=== PATIENT | female | born 1950 | race Caucasian/White ===

== ENCOUNTER 2024-10-11 10:31 | Outpatient (OUT) | payer MEDICARE, SELFPAY ==
--- NOTE | 2024-10-11 10:35 | ECG_ITS ---
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 Measurements Intervals Sarver Rate: 93 P: 67 ME: 214 QRS: 55 QRSD: 78 T: 26 QT: 329 QTc: 409 Interpretive Statements SINUS RHYTHM WITH FIRST DEGREE AV BLOCK Abnormal ECG Compared to ECG 07/09/2021 08:47:59 First degree AV block now present Incomplete right bundle-branch block no longer present Electronically Signed On 10-11-2024 22:59:04 EDT by LOBO HERNÁNDEZ M.D.
--- NOTE | 2024-10-11 10:51 | CT_ITS ---
The [address] [address] Patient Name: OKSANA CUELLO MRN: [id number] date: 1950 Sex: F Assigned Patient Location: CT Current Patient Location: CT Accession/Order Number: [id number] Exam Date: 10/11/2024 13:53 Report Date: 10/11/2024 14:01 At the request of: ANALI LEYVA MD Procedure: CT ankle LT wo con CT ankle LT wo con 10/11/2024 11:07 AM SIGNS AND SYMPTOMS: Preop, tib-fib fracture TECHNIQUE: Multidetector CT axial slices of the left ankle without IV contrast. Multiplanar reformats were performed and viewed on a separate workstation and reviewed to further define anatomy and possible pathology. CT was performed with one or more of the following dose reduction techniques: Automated exposure control, adjustment of the mA and/or kV according to patient size, or use of iterative reconstruction technique. COMPARISON: Radiographs from 10/07/2024 FINDINGS: There is a mildly displaced obliquely oriented fracture of the distal shaft of the fibula similar to the prior study. The distal fragment is offset laterally by approximately 6 mm. There is widening of the junction of the talus and the medial malleolus with a gap measuring 9 mm. There are tiny bony fragments separate from the medial malleolus and medial aspect of the talus suggesting an avulsive injury to the deltoid ligament. There is a comminuted mildly displaced fracture of the dorsal aspect of the distal tibia which is slightly impacted by approximately 5 mm. There is also a corresponding slightly impacted fracture along the dorsal aspect talus. The subtalar joints are preserved. There is accompanying diffuse soft tissue swelling. CT/CT ankle LT wo con IMPRESSION: Distal tibia and fibular fractures are noted as above. There is a slightly impacted fracture of the dorsal aspect of the talus. Findings suggest a deltoid ligament injury with tiny avulsed fracture fragment separate from the medial malleolus and medial talus. There is also widening of the distance between the medial malleolus and talus. Impression dictated by: Carroll [place] M.D. 10/11/2024 2:01 PM Dictation Location: [employer] Electronically authenticated by: [id number] Y Date: 10/11/2024 14:01
--- NOTE | 2024-10-11 10:53 | XR_ITS ---
The [place] [id number] Patient Name: OKSANA CUELLO MRN: [id number] date: 1950 Sex: F Assigned Patient Location: CT Current Patient Location: CT Accession/Order Number: [id number] Exam Date: 10/11/2024 13:51 Report Date: 10/11/2024 13:53 At the request of: ANALI LEYVA MD Procedure: XR chest 2V XR chest 2V 10/11/2024 11:11 AM SIGNS AND SYMPTOMS: ^Preoperative Respiratory Clearance PROTOCOL: Frontal and lateral radiographs of the chest COMPARISON: None FINDINGS: The trachea is midline. The heart and mediastinal structures are within normal limits. The lung parenchyma is clear. The bony thorax is intact. Degenerative changes are noted in the lumbar spine. XR/XR chest 2V IMPRESSION: No acute cardiopulmonary pathology. Impression dictated by: Carroll Me[place] M.D. 10/11/2024 1:53 PM Dictation Location: [place] [address] Electronically authenticated by: [id number] Y Date: 10/11/2024 13:53
[2024-10-11 11:02] LABS: Basophils Percent Auto 0.5 % (0.2-2.0); Eosinophils Absolute Auto 0.1 10^3/uL (0.0-0.7); Eosinophils Percent Auto 2.2 % (0.9-7.0); Hematocrit 38.7 % (36.0-48.0); Hemoglobin 12.8 g/dL (12.0-16.0); Immature Granulocytes Abs Auto 0.01 10^3/uL (0.00-0.03); Immature Granulocytes Pct Auto 0.2 % (0.0-0.5); Lymphocytes Absolute Auto 1.3 10^3/uL (1.2-3.8); Lymphocytes Percent Auto 21.9 % (20.5-60.0); Mean Corpuscular HGB Conc 33.1 g/dL (29.9-35.2); Mean Corpuscular Hemoglobin 30.3 pg (26.7-34.0); Mean Corpuscular Volume 91.7 fL (81.0-99.0); Mean Platelet Volume 9.7 fL (9.5-13.5); Monocytes Absolute Auto 0.6 10^3/uL (0.3-0.8); Monocytes Percent Auto 9.8 % (1.7-12.0); Neutrophils Absolute Auto 3.9 10^3/uL (1.4-6.5); Neutrophils Percent Auto 65.4 % (43.0-75.0); Platelet Count 249 10^3/uL (150-450); Red Blood Count 4.22 10^6/uL (4.20-5.40); Red Cell Distribution Width 12.7 % (11.0-15.0)
[2024-10-11 11:13] LABS: Anion Gap 11.4; BUN Creatinine Ratio 22.1; Calcium 9.3 mg/dL (8.5-10.1); Carbon Dioxide 29.6 mmol/L (21.0-32.0); Chloride 106 mmol/L (98-107); Estimated GFR (African America >60 (>=60 mL/min/1.73m^2); Estimated GFR (Non-African Ame 52 (>=60 mL/min/1.73m^2); Glucose 98 mg/dL (74-106); Sodium 143 mmol/L (136-145)
== END 2024-10-11 10:32 | disposition home or self-care (01) ==
LOC: CT 10:33
PROVIDERS: PCP Nurse Practitioner; Visit Provider Student in an Organized Health Care Education/Training Program
DX: Z01.810 Encounter for preprocedural cardiovascular examination (principal); Z01.812 Encounter for preprocedural laboratory examination; Z01.811 Encounter for preprocedural respiratory examination
CPT/HCPCS: 36415; 71046; 73700; 80048; 85025; 93005

== ENCOUNTER 2024-11-13 16:37 | Outpatient (OUT) | payer MEDICARE, SELFPAY ==
--- OUTSIDE RECORDS SUMMARY | 2024-11-13 05:02 | XMS_ITS ---
Author Organization [facility] Address [address] [place] [address] Care Team Providers Care Searchlight Operator Name Role Phone WHITNEY HERNANDEZ Primary Care Provider Unavail able Tito Florez Unavailable [phone] Golden Watkins Unavailable [phone] Encounters Encounter Location Date Provider Diagnosis [facility] [address] [place] [address] 11/13/2024 Golden Watkins Plan Of Treatment Next Appt Details Provider Name:Golden sam, 11/27/2024 01:30:00 PM, [address], [place], [address], Progress Notes * DEBORA CUELLOB:[birth year] (74 yo F)Acc No.[id number]:11/13/2024 Patient: OKSANA REYNA :1950 A ge:74 Y S ex:Female Address:[facility] [address], [place], [address] * true * Date: Generated for Printi ng/Faxing/eTransmitting on: 0 11/13/2024 04:40 PM EDT
--- OUTSIDE RECORDS SUMMARY | 2024-11-13 09:30 | XMS_ITS ---
Author Organization [facility] Address [address] [place] [address] Care Team Providers Care Household Worker Name Role Phone WHITNEY HERNANDEZ Primary Care Provider Unavail able Tito Florez Unavailable [phone] Ganga Garcia Unavailable [phone] REASON FOR VISIT S/P ORIF LEFT ANKLE AT [facility] - increased pain, can't sleep(Dr. Watkins Patient), Status post ORIF left trimalleolar ankle fracture 10/12/2024 Medications Medication SIG (Take, Route, Frequency, Duration) Notes Start Date End Date Status oxyCODONE 5 mg 1 tab(s) orally ever y 12 hours PRN pain for 10 days 11/13/2024 11/23/2024 Active Lyrica 75 mg 1 cap orally 2 times a day as needed for pain for 14 days 11/13/2024 Active meloxicam Active simvastatin 40 mg for 90 Days Active acyclovir 400 mg for 90 Days A ctive hydroCHLOROthiazide 12.5 mg TAKE 1 CAPSU LE DAILY for 90 Days Active ketorolac 10 mg 1 tab(s) orally 4 times a day as needed for breakthrough pain for 5 days 10/10/2024 Active atorvastatin Active Encounters Encounter Location Date Provider Diagnosis [facility] [address] [place] [address] 11/13/2024 Ganga Garcia Closed disp trimalle olar fx of left lower leg with routine healing S82.852D Assessments Encounter Date Diagnosis (ICD Code) Assessment Notes Treatment Notes Treatment Clinical Notes Section Notes 11/13/2024 Closed disp trimalleolar fx of left lower leg with routine healing (ICD-10 - S82.852D) Status post ORIF left trimalleolar ankle fracture 10/12/2024 Left calf pain 11/13/2024 Other Discussed treatment options with patient. Patient does have diffuse pain and swelling in her calf and lower leg. At this time we will obtain a venous duplex ultrasound of her lower leg to rule out DVT as a cause of her increased pain and swelling. She was given a prescription for oxycodone and Lyrica to help with her pain. She was encouraged to continue using anti-inflammato ledy as well as ice. Continue nonweightbearin g. All questions and concerns were addressed. Patient was in agreement the treatment plan. Will plan to see the patient back in [address] Gale for repeat clinical and radiographic evaluation. Status post ORIF left trimalleolar ankle fracture 10/12/2024 Left calf pain Plan Of Treatment Medication Medication Name Sig Start Date Stop Date Notes oxyCODONE 5 mg 1 tab(s) orally ever y 12 hours PRN pain for 10 days 11/13/2024 11/23/2024 Lyrica 75 mg 1 cap orally 2 times a day as needed for pain for 14 days 11/13/2024 Treatment Notes Assessment Notes Other Discussed treatment options with patient. Patient does have diffuse pain and swelling in her calf and lower leg. At this time we will obtain a venous duplex ultrasound of her lower leg to rule out DVT as a cause of her increased pain and swelling. She was given a prescription for oxycodone and Lyrica to help with her pain. She was encouraged to continue using anti-inflammatories as well as ice. Continue nonweightbearing. All questions and concerns were addressed. Patient was in agreement the treatment plan. Will plan to see the patient back in [address] Gale for repeat clinical and radiographic evaluation. Pending Test Test Name Order Date Foot, left 3v - [id number] 11/13/2024 RSS: ANKLE 3V LEFT AP, MORTISE, LAT-7361 0 11/13/2024 RSS- Venous doppler LEFT low er extremity : Dx: M79.662 left leg pain ; Hold and call if positive only 11/13/2024 Next Appt Details Follow Up: [address] Watkins, Reason: Provider Name:Golden sam, 11/27/2024 01:30:00 PM, [address], [place], [address], Progress Notes * DEBORA CUELLOB:[birth year] (74 yo F)Acc No.[id number]:11/13/2024 Progress Notes Patient: OKSANA REYNA Provider: Andres Garcia MD :1950 A ge:74 Y S ex:Female Date:11/13/2024 Address:[facility] [address] Pcp:WHITNEY HERNANDEZ Subjective: * Chief Complaints: * 1 . S/P ORIF LEFT ANKLE AT [facility] - increased pain, can't sleep(Dr. Watkins Patient). 2. Status post ORIF left trimalleolar ankle fracture 10/12/2024 . * HPI: H PI: Patient is a 74-year-old female who presents for follow-up evaluation 4 weeks status post ORIF left ankle fracture. Patient states of the last 4 to 5 days she has had increasing pain pain is sharp and severe in nature. Pain is worse and swelling in her left ankle. With motion. She notes significant stiffness and limitations of her motion secondary to pain and swelling. She denies any redness or drainage from her incision. Denies fevers or chills. She notes diffuse swelling in her lower leg and ankle. She does note some diffuse altered sensation. She has been using a walker for ambulation. She has limited ability to place her boot on her foot secondary to the pain and swelling. She continues to take Tylenol and Motrin. * ROS: C onstitutional: Denies Yo hyatt. * Medical History: * Medications: T aking ketorolac 10 mg tablet 1 tab(s) orally 4 times a day as needed for breakthrough pain , Taking atorvastatin , Taking meloxicam , Taking simvastatin 40 mg tablet , Taking acyclovir 400 mg tablet , Taking hydroCHLOROthiazide 12.5 mg capsule TAKE 1 CAPSULE DAILY Objective: * Vitals: * Examination: G eneral examination: G eneral exam: Patient is a well-appearing female resting comfortably no acute distress. Patient is awake alert and orient x 3. No mitten affect. X -ray Imaging Studies: 3 views left ankle and 3 views left foot obtained and reviewed. Radiographs demonstrate well aligned well-fixed left trimalleolar ankle fracture. Ankle mortise and syndesmosis well aligned. No evidence of fracture in her foot. L eft Lower Extremity: I ncision clean dry and intact. No erythema or drainage. Diffuse edema left foot and ankle. Diffuse tenderness to palpation left ankle and foot. Limited ankle range of motion. Motor intact TA, GSC, EHL, FHL. Sensation intact to light touch SPN, DPN, sural, saphenous, tibial nerve distribution. 2+ DP pulse. Toes are well- perfused. No calf pain. Negative Homans. Assessment: * Assessment: 1. C losed disp trimalleolar fx of left lower leg with routine healing - S82.852D (Primary)? Status post ORIF left trimal leolar ankle fracture 10/12/2024 Left calf pain. Plan: * Treatment: 2. O thers I maging: Foot, left 3v - [id number] I maging: RSS: ANKLE 3V LEFT AP, MORTISE, [id number] Notes: Discussed treatment options with patient. Patient does have diffuse pain and swelling in her calf and lower leg. At this time we will obtain a venous duplex ultrasound of her lower leg to rule out DVT as a cause of her increased pain and swelling. She was given a prescription for oxycodone and Lyrica to help with her pain. She was encouraged to continue using anti-inflammatories as well as ice. Continue nonweightbearing. All questions and concerns were addressed. Patient was in agreement the treatment plan. Will plan to see the patient back in [address] Gale for repeat clinical and radiographic evaluation. * Procedure Codes: 7 3610 X-ray Ankle, 3 view, 96731 X-ray Foot, 3 view * Follow Up: [address] Watkins Forms: * Images: * Electronic signature of Ganga Garcia MD on 11/13/2024 at 04:40 PM EDT Sign off status: Pending * Provider: Andres Garcia MD Date: 11/13/2024 Generated for Susan escobar/Madhu/Lloyditting on: 0 11/13/2024 04:40 PM EDT History and Physical Notes * HPI (History of Present Illness) Category Sub-Category Detail Notes Category Not es HPI Patient is a 74 -year-old female who presents for follow-up evaluation 4 weeks status post ORIF left ankle fracture. Patient states of the last 4 to 5 days she has had increasing pain pain is sharp and severe in nature. Pain is worse and swelling in her left ankle. With motion. She notes significant stiffness and limitations of her motion secondary to pain and swelling. She denies any redness or drainage from her incision. Denies fevers or chills. She notes diffuse swelling in her lower leg and ankle. She does note some diffuse altered sensation. She has been using a walker for ambulation. She has limited ability to place her boot on her foot secondary to the pain and swelling. She continues to take Tylenol and Motrin. Examination Category Sub-Category Detail Notes Category Not es General examination General exam: Patient is a well-appearing female resting comfortably no acute distress. Patient is awake alert and orient x 3. No mitten affect. X-ray Imaging Studies 3 view s left ankle and 3 views left foot obtained and reviewed. Radiographs demonstrate well aligned well-fixed left trimalleolar ankle fracture. Ankle mortise and syndesmosis well aligned. No evidence of fracture in her foot. Left Lower Extremity Incisio n clean dry and intact. No erythema or drainage. Diffuse edema left foot and ankle. Diffuse tenderness to palpation left ankle and foot. Limited ankle range of motion. Motor intact TA, GSC, EHL, FHL. Sensation intact to light touch SPN, DPN, sural, saphenous, tibial nerve distribution. 2+ DP pulse. Toes are well-perfused. No calf pain. Negative Homans.
--- OUTSIDE RECORDS SUMMARY | 2024-11-13 16:40 | XMS_ITS | Encounter Summary ---
[facility] Address [id number] [address] [place] [address] Care Team Providers Care Telecom Network Manager Name Role Phone BeltranKyra akerseayd Gifford APRN-JAW SKINNER Primary Care Provid er Encounter Details Date Type Department Care Team (Late st Contact Info) Description 07/31/2022 Orders Only [facility] - [facility] Medicine [address] [place] [address] Kana Ozuna, [address] [place] [address] Colon cancer screening (Primary Dx) Social History Tobacco Use Types Packs/Day Years Used Date Smoking Tobacco: Never Smokeless Tobacco: Never Alcohol Use Standard Drinks/Week Comments No 0 (1 standard drink = 0.6 oz pur e alcohol) PHQ-2 Answer Date Recorded Total Score 0 07/30/2022 Childcare Answer Date Recorded Childcare Unknown 11/09/2018 Employment Answer Date Recorded Employment Unknown 11/09/2018 Hunger Screening Answer Date Recorded Within the past 12 months we worried whether our food would run out before we got money to buy more. Never True 07/30/2022 Within the past 12 months th e food we bought just didn't last and we didn't have money to get more. Never True 07/30/2022 Purpose - Life Answer Date Recorded Purpose and direction in life Unknown Comments No Sex and Gender Information Value Date Recorded Sex Assigned at Not on file Legal Sex Female 11:48 AM EDT Gender Identity Not on file Sexual Orientation Not on file Occupation Industry Job Start Date Job End Date [employer] Not on file Not on file Not on file COVID-19 Exposure Response Date Recorded In the last month, have you been in contact with someone who was confirmed or suspected to have Coronavirus / COVID-19? No / Unsure 07/30/2022 9:41 AM EST documented as of this encounter Plan of Treatment Upcoming Encounters Date Type Department Care Team (Late st Contact Info) Description 08/06/2025 10:20 AM EDT Office Visit [facility] [address] [place] [address] Bisi Beltran, FOOD PREPARATION KITCHEN AIDE-JAW SKINNER [address] [place] [address] documented as of this encounter Visit Diagnoses Diagnosis Colon cancer screening- Primary Special screening for malignant neoplasms, colon documented in this encounter Additional Health Concerns Assessment Noted Time PHQ-9 Depression Total Score: 0 07/31/19 23 9:52 AM EST A Body Mass Index follow-up plan has been documented for the patient 07/30/2022 6:39 PM EST documented as of this encounter Care Teams Telecom Network Manager Relationship Specialty Start Date End Date Bisi Beltran, TERESA-JAW SKINNER [address] [place] [address] PCP - General Family Medicine 06/06/19 documented as of this encounter
--- OUTSIDE RECORDS SUMMARY | 2024-11-13 16:40 | XMS_ITS | Encounter Summary ---
Author Organization [facility] Address [id number] [address] [place] [address] Care Team Providers Care Family Dinner Service Specialist Name Role Phone Bisi Beltran Ирина COLEMANN-TUBE MOUNTER Primary Care Provid er Encounter Details Date Type Department Care Team (Late Contact Info) Description 10/27/2024 Orders Only [facility] - [facility] [address] [facility] [place] [address] Ref Prov, [place] [address] Social History Tobacco Use Types Packs/Day Years Used Date Smoking Tobacco: Never Smokeless Tobacco: Never Alcohol Use Standard Drinks/Week Comments No 0 (1 standard drink = 0.6 oz pur e alcohol) PHQ-2 Answer Date Recorded Total Score 0 08/02/2024 Childcare Answer Date Recorded Childcare Unknown 11/09/2018 Employment Answer Date Recorded Employment Unknown 11/09/2018 Hunger Screening Answer Date Recorded Within the past 12 months we worried whether our food would run out before we got money to buy more. Never True 08/02/2024 Within the past 12 months th e food we bought just didn't last and we didn't have money to get more. Never True 08/02/2024 Purpose - Life Answer Date Recorded Purpose and direction in life Unknown Comments No Sex and Gender Information Value Date Recorded Sex Assigned at Not on file Legal Sex Female 11:48 AM EDT Gender Identity Not on file Sexual Orientation Not on file Occupation Industry Job Start Date Job End Date [employer] Not on file Not on file Not on file documented as of this encounter Plan of Treatment Upcoming Encounters Date Type Department Care Team (Late st Contact Info) Description 08/06/2025 10:20 AM EDT Office Visit [facility] [address] [place] [address] Bisi Beltran APRN-CNP [address] [place] [address] documented as of this encounter Procedures Procedure Name Priority Date/Time Associated Diagnosis Comments CT ANKLE LT WO CONT Routine 10/11/2024 9:44 AM EDT documented in this encounter Results * CT ankle left without contrast (10/11/2024 9:44 AM EDT) Anatomical Region Laterality Modality MSK, Lower Extremities, Ankle, MSK Covera Left Computed Tomography us Not In System Ref Prov IMG CT ORDERABLES Final R esult documented in this encounter Visit Diagnoses Not on filedocumented in this encounter Additional Health Concerns Assessment Noted Time PHQ-9 Depression Total Score: 0 08/03/19 25 9:00 AM EST A Body Mass Index follow-up plan has been documented for the patient 08/02/2024 10:38 AM EST documented as of this encounter Care Teams Family Dinner Service Specialist Relationship Specialty Start Date End Date Bisi Beltran APRN-CNP [address] [place] [address] PCP - General Family Medicine 06/06/19 documented as of this encounter
--- OUTSIDE RECORDS SUMMARY | 2024-11-13 16:40 | XMS_ITS | Encounter Summary ---
Author Organization [email or web address] s [employer] Address [id number] [address] [place] [address] Care Team Providers Care Rent Control Office Manager Name Role Phone Bisi Beltran APRN-CRATER AND PACKER Primary Care Provid er Encounter Details Date Type Department Care Team (Late Contact Info) Description 03/07/2021 Orders Only [facility] [address] [place] [place] [address] External, Scanning Provider Social History Tobacco Use Types Packs/Day Years Used Date Smoking Tobacco: Never Smokeless Tobacco: Never Alcohol Use Standard Drinks/Week Comments No 0 (1 standard drink = 0.6 oz pur e alcohol) PHQ-2 Answer Date Recorded Total Score 0 07/31/2020 Childcare Answer Date Recorded Childcare Unknown 11/09/2018 Employment Answer Date Recorded Employment Unknown 11/09/2018 Purpose - Life Answer Date Recorded Purpose [...] Medicine - Family Medicine [address] [place] [address] Bisi Beltran APRN-CRATER AND PACKER [address] [place] [address] documented as of this encounter Procedures Procedure Name Priority Date/Time Associated Diagnosis Comments MULTIPLE LABS Routine 03/07/2021 documented in this encounter Results * Multiple labs (03/07/2021) us Scanning Provider External [place] [facility] Final Result MANUALLY TRANSCRIBED RESULTS documented in this encounter Visit Diagnoses Not on filedocumented in this encounter Additional Health Concerns Assessment Noted Time PHQ-9 Depression Total Score: 0 08/01/19 21 1:00 PM EST A Body Mass Index follow-up plan has been documented for the patient 01/03/2020 9:55 AM EDT documented as of this encounter Care Teams Rent Control Office Manager Relationship Specialty Start Date End Date Bisi Bletran APRN-CRATER AND PACKER [address], [place] [address] PCP - General Family Medicine 06/06/19 documented as of this encounter
--- OUTSIDE RECORDS SUMMARY | 2024-11-13 16:40 | XMS_ITS | Encounter Summary ---
Author Organization [facility] Address [id number] [address] [place] [address] Care Team Providers Care Commissioner Of Conciliation Name Role Phone Bisi Beltran Ирина COLEMANN-ON LINE CSR Primary Care Provid er Encounter Details Date Type Department Care Team (Late Contact Info) Description 08/31/2022 Orders Only [facility] - Family Medicine [address] [facility] [address] External, Scanning Provider Social History Tobacco Use [...] Medicine - Family Medicine [address] [place] [address] Bisi Beltran APRN-BROOKE [address] [place] [address] documented as of this encounter Procedures Procedure Name Priority Date/Time Associated Diagnosis Comments SURGICAL PATHOLOGY Routine 08/26/2022 documented in this encounter Results * Surgical Pathology (08/26/2022) us Scanning Provider External PATHOLOGY/CYTOLOGY OR DERABLES Final Result MANUALLY TRANSCRIBED RESULTS documented in this encounter Visit Diagnoses Not on filedocumented in this encounter Additional Health Concerns Assessment Noted Time PHQ-9 Depression Total Score: 0 07/31/19 23 9:52 AM EST A Body Mass Index follow-up plan has been documented for the patient 07/30/2022 6:39 PM EST documented as of this encounter Care Teams Commissioner Of Conciliation Relationship Specialty Start Date End Date Bisi Beltran, TERESA-ON LINE CSR [address] [place] [address] PCP - General Family Medicine 06/06/19 documented as of this encounter
--- OUTSIDE RECORDS SUMMARY | 2024-11-13 16:40 | XMS_ITS | Encounter Summary ---
Author Organization [facility] Address [id number] [address] [place] [address] Care Team Providers Care Starbucks Clerk Name Role Phone Bisi Beltran Ирина COLEMANN-AUTOMOBILE MECHANIC RADIATOR Primary Care Provid er Encounter Details Date Type Department Care Team (Late Contact Info) Description 09/09/2022 Orders Only [facility] Internal [facility] - Family Medicine [address] [facility] [place] [phone] External, Scanning Provider Social History Tobacco Use [...] Medicine - Family Medicine [address] [place] [address] Bisi Beltran APRN-CNP [address] [address] documented as of this encounter Procedures Procedure Name Priority Date/Time Associated Diagnosis Comments CYSTOSCOPY Routine 09/09/2022 documented in this encounter Results * Cystoscopy (09/09/2022) us Scanning Provider External PROCEDURE ORDERABL ES Final Result MANUALLY TRANSCRIBED RESULTS documented in this encounter Visit Diagnoses Not on filedocumented in this encounter Additional Health Concerns Assessment Noted Time PHQ-9 Depression Total Score: 0 07/31/19 23 9:52 AM EST A Body Mass Index follow-up plan has been documented for the patient 07/30/2022 6:39 PM EST documented as of this encounter Care Teams Starbucks Clerk Relationship Specialty Start Date End Date Bisi Beltran, TERESA-AUTOMOBILE MECHANIC RADIATOR [address] [place] [address] PCP - General Family Medicine 06/06/19 documented as of this encounter
--- OUTSIDE RECORDS SUMMARY | 2024-11-13 16:40 | XMS_ITS | Encounter Summary ---
Author Organization [facility] [place] [facility] Address [facility] [id number] [address] [place] [address] Care Team Providers Care Watch Repair Person Name Role Phone Bisi Beltran Ирина COLEMANN-PHYSICIAN VICE PRESIDENT Primary Care Provid er Encounter Details Date Type Department Care Team (Late st Contact Info) Description 09/03/2022 Telephone [facility] Internal Medicine - Family Medicine [address] [facility] [place] [phone] Kaylynn Márquez CMA Social History Tobacco Use Types Packs/Day Years [...] on file documented as of this encounter Miscellaneous Notes * Telephone Encounter - Kaylynn Márquez CMA - 09/03/2022 10:09 AM EDT This patient called and cancelled her Colonoscopy because she had to have surgery last week and is having complications. She said she would call us in a couple of weeks to reschedule documented in this encounter Plan of Treatment Upcoming Encounters Date Type Department Care Team (Late st Contact Info) Description 08/06/2025 10:20 AM EDT Office Visit [facility] - Family Medicine [address] [place] [address] Bisi Beltran APRN-BROOKE [address] [place] [address] documented as of this encounter Visit Diagnoses Not on filedocumented in this encounter Additional Health Concerns Assessment Noted Time PHQ-9 Depression Total Score: 0 07/31/19 23 9:52 AM EST A Body Mass Index follow-up plan has been documented for the patient 07/30/2022 6:39 PM EST documented as of this encounter Care Teams Watch Repair Person Relationship Specialty Start Date End Date Bisi Beltran APRN-BROOKE [address] [place] [address] PCP - General Family Medicine 06/06/19 documented as of this encounter
--- OUTSIDE RECORDS SUMMARY | 2024-11-13 16:40 | XMS_ITS | Encounter Summary ---
Author Organization [facility] [employer] [facility] Address [id number] [address] [place] [address] Care Team Providers Care Motor Equipment Lieutenant Name Role Phone Bisi Beltran Ирина COLEMANN-PEDIATRIC GENETIC COUNSELOR Primary Care Provid er Encounter Details Date Type Department Care Team (Late st Contact Info) Description 08/25/2022 Orders Only [facility] Internal Medicine - Family Medicine [address] [facility] [place] [phone] External, Scanning Provider Social History Tobacco Use [...] - Family Medicine [address] [place] [phone] Bisi Beltran APRN-BROOKE [address] [place] [address] documented as of this encounter Procedures Procedure Name Priority Date/Time Associated Diagnosis Comments MULTIPLE LABS Routine 08/25/2022 documented in this encounter Results * Multiple labs (08/25/2022) us Scanning Provider External MA IMAGING Final Result MANUALLY TRANSCRIBED RESULTS documented in this encounter Visit Diagnoses Not on filedocumented in this encounter Additional Health Concerns Assessment Noted Time PHQ-9 Depression Total Score: 0 07/31/19 23 9:52 AM EST A Body Mass Index follow-up plan has been documented for the patient 07/30/2022 6:39 PM EST documented as of this encounter Care Teams Motor Equipment Lieutenant Relationship Specialty Start Date End Date Bisi Beltran APRN-CNP [address] [place] [phone] PCP - General Family Medicine 06/06/19 documented as of this encounter
--- OUTSIDE RECORDS SUMMARY | 2024-11-13 16:40 | XMS_ITS | Encounter Summary ---
Author Organization [facility] Address [id number] [address] [place] [address] Care Team Providers Care Finance Insurance Manager Name Role Phone Bisi Beltran Ирина COLEMANN-EDITOR GREETING CARD Primary Care Provid er Encounter Details Date Type Department Care Team (Late st Contact Info) Description 06/03/2020 Telephone [facility] [address] [place] [address] Janelle Salazar MA Social History Tobacco Use Types Packs/Day Years Used Date Smoking Tobacco: Never Smokeless Tobacco: Never Alcohol Use Standard Drinks/Week Comments No 0 (1 standard drink = 0.6 oz pur e alcohol) PHQ-2 Answer Date Recorded PHQ-2 Score 0 08/18/2018 Childcare Answer Date Recorded Childcare Unknown 11/09/2018 Employment Answer Date Recorded Employment Unknown 11/09/2018 Comments No Sex and Gender Information Value Date Recorded Sex Assigned at Not on file Legal Sex Female 11:48 AM EDT Gender Identity Not on file Sexual Orientation Not on file Occupation Industry Job Start Date Job End Date [employer] Not on file Not on file Not on file COVID-19 Exposure Response Date Recorded In the last month, have you been in contact with someone who was confirmed or suspected to have Coronavirus / COVID-19? No / Unsure 06/01/2020 8:52 AM EST documented as of this encounter Miscellaneous Notes * Telephone Encounter - Janelle Salazar MA - 06/03/2020 9:57 AM EST Spoke to pt, she said with [facility]/ medicare they have to have wellness g code on it, alongwith dx code. Will have to pay if not coded with wellness, they cannot afford to pay Her and guerrero. Janelle Salazar MA 06/03/20 0959 * Telephone Encounter - Janelle Salazar MA - 06/03/2020 9:57 AM EST Please update dx on orders to add wellness code for insurance. Thank you Janelle Salazar MA 06/07/20 0839 * Telephone Encounter - Janelle Salazar MA - 06/03/2020 9:57 AM EST PRINTED AND HAND WROTE DX Z00.00, DUE TO PT GOING TO GET LABS DONE 1ST WEEK OF JUL, AND STILL NOT UPDATED BY PAUL * Telephone Encounter - NIECY Bell - 06/03/2020 9:57 AM EST Is this done? * Telephone Encounter - Janelle Salazar MA - 06/03/2020 9:57 AM EST I did this by handwritten dx add on, but you never changed order in system. But I did fax to registration, so hopefully she can use the handwritten and get done. If not, still awaiting your new orderwith correct dx. documented in this encounter Plan of Treatment Upcoming Encounters Date Type Department Care Team (Late st Contact Info) Description 08/06/2025 10:20 AM EDT Office Visit [facility] - Family Medicine [address] [place] [address] Bisi Beltran APRN-EDITOR GREETING CARD [address] [place] [address] documented as of this encounter Visit Diagnoses Not on filedocumented in this encounter Additional Health Concerns Assessment Noted Time PHQ-9 Depression Total Score: 0 06/28/19 20 10:58 AM EST A Body Mass Index follow-up plan has been documented for the patient 01/03/2020 9:55 AM EDT documented as of this encounter Care Teams Finance Insurance Manager Relationship Specialty Start Date End Date Bisi Beltran, FLOORLEADER-EDITOR GREETING CARD [address] [place] [phone] PCP - General Family Medicine 06/06/19 documented as of this encounter
--- OUTSIDE RECORDS SUMMARY | 2024-11-13 16:40 | XMS_ITS | Encounter Summary ---
Author Organization [facility] Address [id number] [address] [place] [address] Care Team Providers Care Audit Lead Name Role Phone Bisi Beltran Ирина COLEMANN-EMBEDDED SOFTWARE ARCHITECT Primary Care Provid er Encounter Details Date Type Department Care Team (Late st Contact Info) Description 07/30/2022 Telephone [facility] - Family Medicine [address] [place] [phone] Kaylynn Márquez CMA Social History Tobacco Use [...] Telephone Encounter - Kaylynn Márquez CMA - 07/30/2022 11:39 AM EST This patient is scheduled for her Screening Colonoscopy on September 16 at 9:00am. Could you please call in the SuTab and try that before the SuPrep? Please send it to [facility] [place] documented in this encounter Plan of Treatment Upcoming Encounters Date Type Department Care Team (Late st Contact Info) Description 08/06/2025 10:20 AM EDT Office Visit [facility] - Family Medicine [address] [place] [address] Bisi Beltran, DIVISION SUPERVISOR-EMBEDDED SOFTWARE ARCHITECT [address] [place] [address] documented as of this encounter Visit Diagnoses Not on filedocumented in this encounter Additional Health Concerns Assessment Noted Time PHQ-9 Depression Total Score: 0 07/31/19 23 9:52 AM EST A Body Mass Index follow-up plan has been documented for the patient 07/30/2022 6:39 PM EST documented as of this encounter Care Teams Audit Lead Relationship Specialty Start Date End Date Bisi Beltran, DIVISION SUPERVISOR-EMBEDDED SOFTWARE ARCHITECT [address] [place] [address] PCP - General Family Medicine 06/06/19 documented as of this encounter
--- OUTSIDE RECORDS SUMMARY | 2024-11-13 16:41 | XMS_ITS | Encounter Summary ---
Author Organization [facility] Address [facility] [id number] [address] [place] [address] Care Team Providers Care Theater Company Producer Name Role Phone Bisi Beltran Ирина COLEMANN-HEAD TURNING MACHINE OPERATOR Primary Care Provid er Encounter Details Date Type Department Care Team (Late st Contact Info) Description 05/18/2022 Telephone [facility] - Family Medicine [address] [place] [phone] Janelle Salazar MA Social History Tobacco Use Types Packs/Day Years Used Date Smoking Tobacco: Never Smokeless Tobacco: Never Alcohol Use Standard Drinks/Week Comments No 0 (1 standard drink = 0.6 oz pur e alcohol) PHQ-2 Answer Date Recorded Total Score 0 03/16/2022 Childcare Answer Date Recorded Childcare Unknown 11/09/2018 [...] have Coronavirus / COVID-19? No / Unsure 05/18/2022 12:59 PM EST documented as of this encounter Miscellaneous Notes * Telephone Encounter - Janelle Salazar MA - 05/18/2022 9:18 AM EST Pt got zpak and steroid on 05/08 from [facility], she said she is not feeling any better, wanted to know if she can get refill. Crazy work schedule this week . Wants something called in for her-told her will call and let her know, may have to at least do video visit. * Telephone Encounter - NIECY Bell - 05/18/2022 9:18 AM EST Per our discussion, she was prescribed medication 10 days ago. If she is no better, will need an appointment for reevaluation documented in this encounter Plan of Treatment Upcoming Encounters Date Type Department Care Team (Late st Contact Info) Description 08/06/2025 10:20 AM EDT Office Visit [facility] - Family Medicine [address] [place] [address] Bisi Beltran APRN-CNP [address] [place] [address] documented as of this encounter Visit Diagnoses Not on filedocumented in this encounter Additional Health Concerns Assessment Noted Time PHQ-9 Depression Total Score: 0 03/16/20 22 10:43 AM EDT A Body Mass Index follow-up plan has been documented for the patient 01/21/2022 2:26 PM EDT documented as of this encounter Care Teams Theater Company Producer Relationship Specialty Start Date End Date Bisi Beltran APRN-CNP [address] [facility] [place] [address] PCP - General Family Medicine 06/06/19 documented as of this encounter
--- OUTSIDE RECORDS SUMMARY | 2024-11-13 16:41 | XMS_ITS | Encounter Summary ---
Author Organization [facility] Sys tem Address [facility] [id number] [address] [place] [address] Care Team Providers Care Hairmasters Manager Name Role Phone Bisi Beltran Ирина COLEMANN-EMPLOYEE COUNSELOR Primary Care Provid er Encounter Details Date Type Department Care Team (Late Contact Info) Description 08/18/2024 Orders Only [facility] - Family Medicine [address] [facility] [place] [address] Ref Prov, [place] [address] Social History Tobacco Use Types Packs/Day Years [...] Internal Medicine - Family Medicine [address] [address] Bisi Beltran, TERESA-BROOKE [address] [place] [address] documented as of this encounter Procedures Procedure Name Priority Date/Time Associated Diagnosis Comments XR ABDOMEN AP 1 VW Routine 08/15/2024 8: 09 AM EDT documented in this encounter Results * X-ray abdomen ap 1 view (08/15/2024 8:09 AM EDT) Anatomical Region Laterality Modality Body, Abdomen N/A Computed Radiogr aphy us Not In System Ref Prov IMG DIAGNOSTIC IMAGING OR DERABLES Final Result documented in this encounter Visit Diagnoses Not on filedocumented in this encounter Additional Health Concerns Assessment Noted Time PHQ-9 Depression Total Score: 0 08/03/19 25 9:00 AM EST A Body Mass Index follow-up plan has been documented for the patient 08/02/2024 10:38 AM EST documented as of this encounter Care Teams Hairmasters Manager Relationship Specialty Start Date End Date Bisi Beltran APRN-BROOKE [address] [place] [place] [address] PCP - General Family Medicine 06/06/19 documented as of this encounter
--- OUTSIDE RECORDS SUMMARY | 2024-11-13 16:41 | XMS_ITS | Encounter Summary ---
Author Organization [facility] [employer] Sys tem Address [facility] [id number] [address] [place] [address] Care Team Providers Care Animal Daycare Provider Name Role Phone Bisi Beltran APRNADVANCED PRACTICE PSYCHIATRIC NURSE Primary Care Provid er Reason for Visit * Reason Onset Date Comments medication update 05/26/2022 Encounter Details Date Type Department Care Team (Late st Contact Info) Description 05/26/2022 Telephone [facility] Family Medicine [address] [place] [address] Bisi Beltran [facility]NBENJAMIN [facility] [address] [place] [address] medication update Social History Tobacco Use Types Packs/Day Years [...] encounter Miscellaneous Notes * Telephone Encounter - Aysha Cheney - 05/26/2022 8:50 AM EST Patient said that shes doing good, she is dried up but she stopped taking it on Wednesday and got stuffy again so shes going to finish out her 5 days which will end 05/27. * Telephone Encounter - NIECY Bell - 05/26/2022 8:50 AM EST Thank you for update documented in this encounter Plan of Treatment Upcoming Encounters Date Type Department Care Team (Late st Contact Info) Description 08/06/2025 10:20 AM EDT Office Visit [facility] - Family Medicine [address] [place] [address] Bisi Beltran APRN-CNP [address] [place] [address] documented as of this encounter Visit Diagnoses Not on filedocumented in this encounter Additional Health Concerns Assessment Noted Time PHQ-9 Depression Total Score: 0 03/16/20 22 10:43 AM EDT A Body Mass Index follow-up plan has been documented for the patient 01/21/2022 2:26 PM EDT documented as of this encounter Care Teams Animal Daycare Provider Relationship Specialty Start Date End Date Bisi Beltran APRN-CNP [address] [facility] [place] [address] PCP - General Family Medicine 06/06/19 documented as of this encounter
--- OUTSIDE RECORDS SUMMARY | 2024-11-13 16:41 | XMS_ITS | Encounter Summary ---
Author Organization [employer] s tem Address [facility] [id number] [address] [place] [address] Care Team Providers Care Bulk Fluids Handler Name Role Phone Bisi Beltran APRN-PUTTY GLAZER Primary Care Provid er Encounter Details Date Type Department Care Team (Late Contact Info) Description 01/15/2022 Orders Only [facility] [address] [place] [address] External, Scanning Provider Social History Tobacco Use Types Packs/Day Years Used Date Smoking Tobacco: Never Smokeless Tobacco: Never Alcohol Use Standard Drinks/Week Comments No 0 (1 standard drink = 0.6 oz pur e alcohol) PHQ-2 Answer Date Recorded Total Score 0 07/29/2021 Childcare Answer Date Recorded Childcare Unknown 11/09/2018 [...] Medicine - Family Medicine [address] [place] [address] Bisi Beltran APRN-PUTTY GLAZER [address] [place] [address] documented as of this encounter Procedures Procedure Name Priority Date/Time Associated Diagnosis Comments MULTIPLE LABS Routine 01/15/2022 documented in this encounter Results * Multiple labs (01/15/2022) us Scanning Provider External [place] IMAGING Final Result MANUALLY TRANSCRIBED RESULTS documented in this encounter Visit Diagnoses Not on filedocumented in this encounter Additional Health Concerns Assessment Noted Time PHQ-9 Depression Total Score: 0 07/30/19 22 8:55 AM EST A Body Mass Index follow-up plan has been documented for the patient 07/29/2021 12:45 PM EST documented as of this encounter Care Teams Bulk Fluids Handler Relationship Specialty Start Date End Date Bisi Beltran APRN-PUTTY GLAZER [address] [place] [address] PCP - General Family Medicine 06/06/19 documented as of this encounter
--- OUTSIDE RECORDS SUMMARY | 2024-11-13 16:41 | XMS_ITS | Encounter Summary ---
Author Organization [facility] Address [id number] [address] [place] [address] Care Team Providers Care Distillery Worker General Name Role Phone Bisi Beltran TERESA-MICA MACHINE OPERATOR Primary Care Provid er Encounter Details Date Type Department Care Team (Late st Contact Info) Description 05/14/2022 Orders Only [facility] Internal Medicine - Family Medicine [address] [place] [address] External, Scanning Provider Social History Tobacco Use [...] have Coronavirus / COVID-19? No / Unsure 05/08/2022 10:55 AM EST documented as of this encounter Plan of Treatment Upcoming Encounters Date Type Department Care Team (Late st Contact Info) Description 08/06/2025 10:20 AM EDT Office Visit [facility] - Family Medicine [address] [place] [address] Bisi Beltran APRN-BROOKE [address] [place] [address] documented as of this encounter Procedures Procedure Name Priority Date/Time Associated Diagnosis Comments XR ABDOMEN AP 1 VW Routine 05/14/2022 documented in this encounter Results * X-ray abdomen ap 1 view (05/14/2022) Anatomical Region Laterality Modality Body, Abdomen N/A Computed Radiogr aphy us Scanning Provider External IMG DIAGNOSTIC IMAGIN G ORDERABLES Final Result documented in this encounter Visit Diagnoses Not on filedocumented in this encounter Additional Health Concerns Assessment Noted Time PHQ-9 Depression Total Score: 0 03/16/20 22 10:43 AM EDT A Body Mass Index follow-up plan has been documented for the patient 01/21/2022 2:26 PM EDT documented as of this encounter Care Teams Distillery Worker General Relationship Specialty Start Date End Date Bisi Beltran, TERESA-MICA MACHINE OPERATOR [address] [facility] [place] [address] PCP - General Family Medicine 06/06/19 documented as of this encounter
--- OUTSIDE RECORDS SUMMARY | 2024-11-13 16:41 | XMS_ITS | Encounter Summary ---
Author Organization [employer] s tem Address [facility] [id number] [address] [place] [address] Care Team Providers Care Paperboard Box Maker Name Role Phone Bisi Beltran APRN-PHYSICIAN REPRESENTATIVE Primary Care Provid er Encounter Details Date Type Department Care Team (Late Contact Info) Description 01/21/2022 Orders Only [facility] [address] [place] [address] External, Scanning Provider Social History Tobacco Use Types Packs/Day Years Used Date Smoking Tobacco: Never Smokeless Tobacco: Never Alcohol Use Standard Drinks/Week Comments No 0 (1 standard drink = 0.6 oz pur e alcohol) PHQ-2 Answer Date Recorded Total Score 0 01/21/2022 Childcare Answer Date Recorded Childcare Unknown 11/09/2018 [...] Medicine - Family Medicine [address] [place] [address] Bisi Beltran APRN-PHYSICIAN REPRESENTATIVE [address] [place] [address] documented as of this encounter Procedures Procedure Name Priority Date/Time Associated Diagnosis Comments MULTIPLE LABS Routine 01/21/2022 documented in this encounter Results * Multiple labs (01/21/2022) us Scanning Provider External [place] IMAGING Final Result MANUALLY TRANSCRIBED RESULTS documented in this encounter Visit Diagnoses Not on filedocumented in this encounter Additional Health Concerns Assessment Noted Time PHQ-9 Depression Total Score: 0 01/22/20 22 1:28 PM EDT A Body Mass Index follow-up plan has been documented for the patient 01/21/2022 2:26 PM EDT documented as of this encounter Care Teams Paperboard Box Maker Relationship Specialty Start Date End Date Bisi Beltran APRN-PHYSICIAN REPRESENTATIVE [address] [place] [address] PCP - General Family Medicine 06/06/19 documented as of this encounter
--- OUTSIDE RECORDS SUMMARY | 2024-11-13 16:41 | XMS_ITS | Encounter Summary ---
Author Organization [employer] s tem Address [id number] [address] [place] [address] Care Team Providers Care Computer Repair Instructor Name Role Phone Bisi Beltran APRN-TAX CLERK Primary Care Provid er Encounter Details Date Type Department Care Team (Late Contact Info) Description 01/19/2022 Orders Only [facility] [address] [facility] [place] [phone] Ref Prov, [place] [address] Social History Tobacco Use Types Packs/Day Years [...] Encounters Date Type Department Care Team (Late Contact Info) Description 08/06/2025 10:20 AM EDT Office Visit [facility] - Family Medicine [address] [place] [address] Bisi Beltran CONSTRUCTION PLANT OPERATOR-TAX CLERK [address] [place] [address] documented as of this encounter Procedures Procedure Name Priority Date/Time Associated Diagnosis Comments SARS COV 2 (COVID-19) STAT 01/19/2022 documented in this encounter Results * SARS COV 2 (COVID-19) (01/19/2022) NASOPHARYNGEAL us Not In System Ref Prov MICROBIOLOGY - GENERAL OR DERABLES Final Result MANUALLY TRANSCRIBED RESULTS documented in this encounter Visit Diagnoses Not on filedocumented in this encounter Additional Health Concerns Assessment Noted Time PHQ-9 Depression Total Score: 0 07/30/19 22 8:55 AM EST A Body Mass Index follow-up plan has been documented for the patient 07/29/2021 12:45 PM EST documented as of this encounter Care Teams Computer Repair Instructor Relationship Specialty Start Date End Date Bisi Beltran, CONSTRUCTION PLANT OPERATOR-TAX CLERK [address] [place] [address] PCP - General Family Medicine 06/06/19 documented as of this encounter
--- OUTSIDE RECORDS SUMMARY | 2024-11-13 16:41 | XMS_ITS | Encounter Summary ---
Author Organization [employer] s tem Address [facility] [id number] [address] [place] [address] Care Team Providers Care Operations Research Engineer Name Role Phone Bisi Beltran APRN-MACHINERY REPAIR MAINTENANCE SUPERVISOR Primary Care Provid er Encounter Details Date Type Department Care Team (Late Contact Info) Description 10/24/2020 Orders Only [facility] [address] [facility] [place] [address] Ref Prov, [place] [address] Social History Tobacco Use Types Packs/Day Years [...] Medicine - Family Medicine [address] [place] [address] Bisi Beltran FOXPRO DEVELOPER-MACHINERY REPAIR MAINTENANCE SUPERVISOR [address] [place] [address] documented as of this encounter Procedures Procedure Name Priority Date/Time Associated Diagnosis Comments FL UROGRAPHY ANTEGRADE Routine 10/24/2020 documented in this encounter Results * Fluoroscopy urography antegrade (10/24/2020) Anatomical Region Laterality Modality Abdomen, Body Radiographic Razia ging us Not In System Ref Prov IMG FLUOROSCOPY ORDERABLE S Final Result documented in this encounter Visit Diagnoses Not on filedocumented in this encounter Additional Health Concerns Assessment Noted Time PHQ-9 Depression Total Score: 0 08/01/19 21 1:00 PM EST A Body Mass Index follow-up plan has been documented for the patient 01/03/2020 9:55 AM EDT documented as of this encounter Care Teams Operations Research Engineer Relationship Specialty Start Date End Date Bisi Beltran APRN-MACHINERY REPAIR MAINTENANCE SUPERVISOR [address] [place] [address] PCP - General Family Medicine 06/06/19 documented as of this encounter
--- OUTSIDE RECORDS SUMMARY | 2024-11-13 16:41 | XMS_ITS | Clinical Summary ---
Author Organization [facility] Address [address] [place] [address] Care Team Providers Care Clinical Documentation Spec Name Role Phone Bisi Beltran BROOKE Primary Care Provider [phone] Encounters Date Type Department Care Team Description 10/09/2024 Orders Only [facility] [address] [place] [address] Dawson Jara, DPM Pain (Primary Dx) from Last 3 Months Social History Tobacco Use Types Packs/Day Years Used Date Smoking Tobacco: Never Assessed Comments Unknown Sex and Gender Information Value Date Recorded Sex Assigned at Not on file Legal Sex Female 11:58 AM EDT Gender Identity Not on file Sexual Orientation Not on file Plan of Treatment Health Maintenance Due Date Last Done Comments Anxiety Screening 1970 Depression Screening 1970 Hepatitis C Screening 1970 DTaP,Tdap,Td Vaccine (1 - Tdap) [address] Colonography 1997 Cologuard (FIT-DNA) 1997 Colonoscopy 1997 Colorectal Cancer Screening 1997 Diabetes Screening 1997 Fecal Occult Blood 1997 Lipid Screening 1997 Sigmoidoscopy 1997 Pneumococcal Vaccine: 50+ (1 of 1 - PCV) 2002 Shingrix Vaccine (1 of 2) 2002 Bone Density Screening 2017 Covid-19 Vaccine ( - 2023- season) 2024 Advance Directive Discussion 05/31/2024 Influenza Vaccine (Season Ended) 2025 RSV Vaccine (1 - 1-dose 75+ series) 2027 Insurance [employer] Care Teams Clinical Documentation Spec Relationship Specialty Start Date End Date Bisi Beltran, CLINICAL MARKETING MANAGER [address] [place] [address] PCP - General Internal Medicine 10/09/24
--- OUTSIDE RECORDS SUMMARY | 2024-11-13 16:41 | XMS_ITS | Patient Health Record ---
Author Organization [facility] Address [address] [place] [address] Care Team Providers Care Medical Scientist Name Role Phone MARYWHITNEY Primary Care Provider Unavail able Tito Florez Unavailable [phone] Ganga Garcia Unavailable [phone] Golden Watkins Unavailable [phone] Results Component Value Reference Range Notes XR ANKLE LEFT (2 VIEWS) (Not yet reviewed by provider) Interpretation: Performing Lab: Notes/Report: EXAM: XR ANKLE LEFT (2 VIEWS) Performed at: [address] [address] Performed at: XR OR Ankle Left (Not yet re viewed by provider) Interpretation: Performing Lab: Notes/Report: Patient Name: Meghan Cuello This report was not created by a radiologist, physician, or advanced practice provider. XR Ankle 3 Views Left (Not y et reviewed by provider) Interpretation: Performing Lab: Notes/Report: Patient Name: Meghan Cuello EXAM: XR Ankle 3 Views Left Surgery Scheduling Reviewed date:10/26/2024 01:36:34 PM Interpretation: Performing Lab: Notes/Report: Primary Insurance Company: MEDICARE RODNEY Surgeon/Assist: AUTUMN/LYUBOV ALLEN Surgery Location: [facility] Surgery Date & Time: 10/12/2024 @ 1:30 Hosp arrival time day of: 11:30 Surgery End Time: 3:00 Procedure: ORIF LEFT ANKLE Special Equipment: GARCIA AND PAULA C-Arm: YES Diagnosis: CLOSED DISPLACED LEF T BIMALLEOLAR FRACTURE Admission Type: OP Anesthesia Type/CPNB: GENERAL Post-op Appointment Date: 10/30/24 @ 2:00 [place] [facility] Latex Allergy NO Lab Location: [facility] ON 10/11/24 Production Manufacturing Worker: ZACKARY R Clearance Physician: NONE NEEDED History & Physical Appointme nt Date/: 10/10/24 Pre-op labs/Chest Order: CBC,BMP,CXR,EKG Had or have MRSA/Direct cont act w MRSA pt/HCW NO Had dental problems/Yes-no/type: NO Reason For Referral Reason APPROVED PLEASE MS ECERT STAT CT SCAN OF LEFT ANKLE FOR SURGICAL PLANNING AT [facility] Diagnosis 1 Closed trimalleolar fracture of left ankle, initial encounter (S82.252A) Referral Organization [facility] Referring Provider First Name Golden Referring Provider Last Name Autumn Referring Provider Speciality Orthopedic Surgery Referred Organization [facility] cheduling Referred Provider Golden Watkins Referred Address [place], [place], Referred Provider Specialty Orthopedic S urgery Procedure 1 CT Lower Ext w/o Dye (24825) General Notes Zackary Griffin 2024 11:02:32 AM >, Sissy Lockwood 10/10/2024 11:53:20 AM > FORM AND CLINICAL FAXED TO Fabián STEVENS Amber 10/10/2024 01:57:16 PM > AUTH IS APPROVED PER RODNEY. APPROVED DATES ARE FROM 10/10/2024-01/10/2025. AUTH # [id number]. AUTH IN CHART. FAXED TO MARJAN.Gaby Tricia 10/10/2024 02:20:44 PM > Referral Priority Stat Reason APPROVED PLEASE MS ECERT ORIF LEFT ANKLE AT [facility] ON 10/12 OP Joby Quintero 10/10/2024 11:55:19 >Cpt code 10580 Diagnosis 1 Closed trimalleolar fracture of left ankle, initial encounter (S82.022Y) Referral Organization [facility] Referring Provider First Name Golden Referring Provider Last Name Autumn Referring Provider Speciality Orthopedic Surgery Referred Organization [facility] Referred Provider Golden Watkins Referred Address [address] [place], [place],[id number] Referred Provider Specialty Orthopedic S urgery Procedure 1 ORIF Trimalleolar Fx , Medial/Lateral Malleolus W/O Fixation of posterior Lip (67406) General Notes Zackary Griffin 2024 11:03:20 AM >, Sissy Lockwood 10/10/2024 11:44:23 AM > REQ CODEFabián Amber 10/10/2024 12:00:24 PM > QuinteroMalid 10/10/2024 11:55:19 >Cpt code 00066Fabián Amber 10/10/2024 12:02:59 PM > FORM AND CLINICALS FAXEDFabián Amber 10/10/2024 02:00:47 PM > AUTH IS APPROVED PER RODNEY. APPROVED DATES ARE FROM 10/10/2024-04/12/2025. AUTH # [id number]. AUTH IN CHART. FAXED TO [facility]., Gaby Zackary 10/10/2024 02:20:23 PM >ORDER FAXED Referral Priority Stat Medications Medication SIG (Take, Route, Frequency, Duration) Notes Start Date End Date Status oxyCODONE 5 mg 1 tab(s) orally ever y 12 hours PRN pain for 10 days 11/13/2024 11/23/2024 Active Lyrica 75 mg 1 cap orally 2 times a day as needed for pain for 14 days 11/13/2024 Active hydroCHLOROthiazide 12.5 mg TAKE 1 CAPSU LE DAILY for 90 Days Active ketorolac 10 mg 1 tab(s) orally 4 times a day as needed for breakthrough pain for 5 days 10/10/2024 Active atorvastatin Active meloxicam Active simvastatin 40 mg for 90 Days Active acyclovir 400 mg for 90 Days A ctive Problems Problem Type SNOMED Code ICD Code Onset Dates Problem Status W/U Status Risk Notes Problem 6367451 Closed trimalleolar fracture of left ankle, initial encounter (S82.852A) Active confirmed Problem 01899473 Closed bimalleolar fracture of left ankle, initial encounter (S82.842A) Active confirmed Problem 3148955 Closed disp trimalleolar fx of left lower leg with routine healing (S82.852D) Active confirmed Vital Signs Height 5FT 5 IN in 10/10/2024 Weight 142 lbs 10/10/2024 BMI 23.63 10/10/2024 Procedures Procedure Date Ordered Date Performed Result Body Sit e EKG 10/10/2024 N/A Encounters Encounter Location Date Provider Diagnosis [facility] [address] [place] [address] 10/10/2024 Golden Watkins Closed trimalleolar fracture of left ankle, initial encounter S82.852A [facility] [address] [place], [place] [id number] 10/12/2024 Golden Watkins Closed trimalleolar fracture of left ankle, initial encounter S82.852A [facility] [address] [place] [address] 10/30/2024 Golden Watkins Closed disp trimalleolar fx of left lower leg with routine healing S82.852D [facility] [address] [place] [address] 11/13/2024 Ganga Garcia Closed disp trimalleolar fx of left lower leg with routine healing S82.852D [facility] [address] [place] [address] 10/12/2024 Golden Watkins Closed trimalleolar fracture of left ankle, initial encounter S82.852A [facility] [address] [place] [address] 10/25/2024 Golden Watkins Closed trimalleolar fracture of left ankle, initial encounter S82.852A [facility] [address] [place] [address] 11/13/2024 Golden Watkins Assessments Encounter Date Diagnosis (ICD Code) Assessment Notes Treatment Notes Treatment Clinical Notes Section Notes 10/10/2024 Closed trimalleolar fracture of left ankle, initial encounter (ICD-10 - S82.852A) Left trimalleolar ankle fracture 10/12/2024 Closed trimalleolar fracture of left ankle, initial encounter (ICD-10 - S82.852A) 10/12/2024 Closed trimalleolar fracture of left ankle, initial encounter (ICD-10 - S82.852A) 10/25/2024 Closed trimalleolar fracture of left ankle, initial encounter (ICD-10 - S82.852A) 10/30/2024 Closed disp trimalleolar fx of left lower leg with routine healing (ICD-10 - S82.852D) Left trimalleolar ankle fracture 11/13/2024 Closed disp trimalleolar fx of left lower leg with routine healing (ICD-10 - S82.852D) Status post ORIF left trimalleolar ankle fracture 10/12/2024 Left calf pain 10/10/2024 Other I had discussio n today with Meghan regarding her left ankle pain. Does have an unstable ankle fracture. Recommend operative intervention. Will obtain CT for operative planning. Did discuss risk and benefits of surgery. Will plan for ORIF of left ankle. Informed consent obtained. Nonweightbearing strict elevation. This note will serve as H&P Left trimalleolar ankle fracture 10/30/2024 Other Patient doing q uite well today status post left ankle ORIF. Maintain nonweightbearing status. Place her into a cam boot today to allow for further mobility and hygiene purposes and pain control. Would like to see her back in 1 month with repeat x-rays. May progress weightbearing at that time pending x-rays Left trimalleolar ankle fracture 11/13/2024 Other Discussed treat ment options with patient. Patient does have diffuse [...] 10/12/2024 Left calf pain Plan Of Treatment Pending Test Test Name Order Date Chest 2 views - [id number] 10/10/2024 Foot, left 3v - 42621 11/13/2024 BMP 10/10/2024 EKG 10/10/2024 CT ANKLE LEFT WO CONTRAST 10/10/2024 CBC WITH DIFFERENTIAL 10/10/2024 XR Ankle 3 Views Left 10/12/2024 XR ANKLE LEFT (2 VIEWS) 10/30/2024 [facility]- ANKLE 3 VIEW LEFT [id number] 10/10/2024 RSS: ANKLE 3V LEFT AP, MORTISE, LAT-[id number] 0 11/13/2024 RSS- Venous doppler LEFT low er extremity : Dx: M79.662 left leg pain ; Hold and call if positive only 11/13/2024 [facility]- ANKLE 2 VIEW LEFT [id number] 10/30/2024 XR OR Ankle Left 10/12/2024 Next Appt Details Provider Name:Golden sam, 11/27/2024 01:30:00 PM, [address], [place], [address], Insurance Providers Payer Name Payer Address Payer Phone Subscriber Number Group Number Insured Name Patient Relationship to Insured Coverage Start Date Coverage End Date Medicare [employer] [address] [place] [address] [id number] MEGHAN CUELLO Self - patient is the insured Medical (General) History Medical History History ICD Code Problems with Anesthesia Surgical History Surgery Date(Month/Year) ORIF of a left trimalleolar ankle fractu re 10/12/2024
--- OUTSIDE RECORDS SUMMARY | 2024-11-13 16:41 | XMS_ITS | Encounter Summary ---
Author Organization [employer] [facility] tem Address [id number] [address] [place] [address] Care Team Providers Care Locker Room Attendant Name Role Phone Bisi Beltran APRN-FOAM CUTTING SUPERVISOR Primary Care Provid er Encounter Details Date Type Department Care Team (Late Contact Info) Description 09/24/2021 Orders Only [facility] [address] [place] [phone] Kristin Aldridge CMA Special screening for malignant neoplasm of colon Social History Tobacco Use Types Packs/Day Years [...] Medicine - Family Medicine [address] [place] [address] Bisi Beltran MENTAL HEALTH PROFESSIONAL-FOAM CUTTING SUPERVISOR [address] [place] [address] documented as of this encounter Procedures Procedure Name Priority Date/Time Associated Diagnosis Comments AMB REFERRAL TO GASTROENTEROLOGY Routine 09/24/2021 3:12 PM EDT Special screening for malignant neoplasm of colon documented in this encounter Results * Ambulatory referral to Gastroenterology (09/24/2021 3:12 PM EDT) us Bisi [place] OUTPATIENT REFERRAL ORDERABLES Final Result MANUALLY TRANSCRIBED RESULTS documented in this encounter Visit Diagnoses Diagnosis Special screening for malignant neoplasm of colon Special screening for malignant neoplasms, colon documented in this encounter Additional Health Concerns Assessment Noted Time PHQ-9 Depression Total Score: 0 07/30/19 22 8:55 AM EST A Body Mass Index follow-up plan has been documented for the patient 07/29/2021 12:45 PM EST documented as of this encounter Care Teams Locker Room Attendant Relationship Specialty Start Date End Date Bisi Beltran APRN-CNP [address] [place] [address] PCP - General Family Medicine 06/06/19 documented as of this encounter
--- OUTSIDE RECORDS SUMMARY | 2024-11-13 16:41 | XMS_ITS | Encounter Summary ---
Author Organization [facility] [employer] Address [facility] [id number] [address] [place] [address] Care Team Providers Care Spray Gun Repairer Helper Name Role Phone Bisi Beltran Ирина COLEMANN-ANIMAL NURSERY WORKER Primary Care Provid er Encounter Details Date Type Department Care Team (Late st Contact Info) Description 08/01/2024 Telephone [facility] - Family Medicine [address] [place] [address] Norris George CMA Social History Tobacco Use Types Packs/Day [...] encounter Miscellaneous Notes * Telephone Encounter - Norris George CMA - 08/01/2024 8:58 AM EST Pt called and needs you to change the labs to wellness for her and her Steve 04-14-1949. They are waiting at registration for this to be done. * Telephone Encounter - NIECY Bell - 08/01/2024 8:58 AM EST I called patient and explained to proceed with labs. Orders are in correctly. documented in this encounter Plan of Treatment Upcoming Encounters Date Type Department Care Team (Late st Contact Info) Description 08/06/2025 10:20 AM EDT Office Visit [facility] Medicine [address] [place] [address] Bisi Beltran APRN-CNP [address] [place] [address] documented as of this encounter Visit Diagnoses Not on filedocumented in this encounter Additional Health Concerns Assessment Noted Time PHQ-9 Depression Total Score: 0 08/02/19 24 2:45 PM EST A Body Mass Index follow-up plan has been documented for the patient 08/02/2023 4:04 PM EST documented as of this encounter Care Teams Spray Gun Repairer Helper Relationship Specialty Start Date End Date Bisi Beltran APRN-CNP [address] [facility] [place] [address] PCP - General Family Medicine 06/06/19 documented as of this encounter
--- OUTSIDE RECORDS SUMMARY | 2024-11-13 16:41 | XMS_ITS | Encounter Summary ---
Author Organization [employer] s tem Address [id number] [address] [place] [address] Care Team Providers Care Audit Mgr Name Role Phone Bisi Beltran APRN-HEAVY MOBILE EQUIPMENT OPERATOR Primary Care Provid er Encounter Details Date Type Department Care Team (Late Contact Info) Description 10/23/2020 Orders Only [facility] [address] [place] [address] External, Scanning Provider Social History Tobacco Use [...] Medicine - Family Medicine [address] [place] [address] Bisi Beltran APRN-HEAVY MOBILE EQUIPMENT OPERATOR [address] [place] [address] documented as of this encounter Procedures Procedure Name Priority Date/Time Associated Diagnosis Comments XR ABDOMEN AP 1 VW Routine 10/23/2020 documented in this encounter Results * X-ray abdomen ap 1 view (10/23/2020) Anatomical Region Laterality Modality Body, Abdomen N/A [...] as of this encounter Care Teams Audit Mgr Relationship Specialty Start Date End Date Bisi Beltran, GRAINING PRESS OPERATOR-HEAVY MOBILE EQUIPMENT OPERATOR [address] [place] [address] PCP - General Family Medicine 06/06/19 documented as of this encounter
== END 2024-11-13 16:38 | disposition home or self-care (01) ==
LOC: US 16:38
PROVIDERS: PCP Nurse Practitioner; Visit Provider Orthopaedic Surgery
DX: M79.662 Pain in left lower leg (principal); S82.852D Displaced trimalleolar fracture of left lower leg, subsequent encounter for closed fracture with routine healing
CPT/HCPCS: 93971

== ENCOUNTER 2025-01-11 10:11 | Outpatient (OUT) | payer MEDICARE, SELFPAY ==
--- OUTSIDE RECORDS SUMMARY | 2024-12-19 10:10 | XMS_ITS ---
Author Organization [facility] Address [address] [place] [address] Care Team Providers Care Coal Weigher Name Role Phone WHITNEY HERNANDEZ Primary Care Provider Unavail Golden Garrett Unavailable [phone] REASON FOR VISIT LEFT ANKLE RECHECK - ORIF 10/12 Encounters Encounter Location Date Provider Diagnosis [facility] [address] [place] [address] 12/19/2024 Golden Watikns Plan Of Treatment Next Appt Details Provider Name:Golden Zhou s, 01/16/2025 01:40:00 PM, [address] [place], [address], Progress Notes * ONDINA CUELLOADOB:[birth year] (74 yo F)Acc No.[id number]:12/19/2024 Progress Notes Patient: OKSANA REYNA Provider: Isai Watkins DO :1950 A ge:74 Y S ex:Female Date:12/19/2024 Address:[address] [place] [address] [address], [phone] Pcp:WHITNEY HERNANDEZ Subjective: * Chief Complaints: * 1 . LEFT ANKLE RECHECK - ORIF 10/12. * Medical History: Objective: * Vitals: Assessment: Plan: * Treatment: Forms: * Images: * Electronic signature of Víctor Watkins DO on 01/11/2025 at 10:15 AM EDT Sign off status: Pending * Provider: Isai Watkins, DO Date: 0 12/19/2024 Generated for Susan escobar/Madhu/Johnny on: 0 01/11/2025 10:15 AM EDT
--- OUTSIDE RECORDS SUMMARY | 2025-01-09 08:40 | XMS_ITS ---
Author Organization [facility] Address [address] [place] [address] Care Team Providers Care Grain Unloader Name Role Phone WHITNEY HERNANDEZ Primary Care Provider Unavail able Golden Watkins Unavailable [phone] Reason For Referral Reason APPROVED .......PLEA SE PRECERT CT SCAN LEFT FOOT AND ANKLE AT [facility] Diagnosis 1 Closed disp trimalle olar fx of left lower leg with routine healing (S82.852D) Referral Organization [facility] Referring Provider First Name Golden Referring Provider Last Name Roland Referring Provider Speciality Orthopedic Surgery Referred Organization [facility] rita Referred Provider Golden Watkins Referred Address [place], [place], Referred Provider Specialty Orthopedic S urgery Procedure 1 CT Lower Ext w/o Dye (57771) General Notes Anali Griffin 2024 01:01:49 PM >Zoraida Amy 01/09/2025 02:13:13 PM >FORM AND CLINICAL FAXED TO Zoraida STEVENS Amy 01/10/2025 08:35:58 AM >APPROVED PER RODNEY AUTH #[id number] VALID 10/10/2024-03/30/2025 COPY IN CHART MA NOTIFIED REF FAXED TO Gaby PHILLIP Tricia 01/11/2025 08:53:40 AM > Referral Priority Routine REASON FOR VISIT LEFT ANKLE RECHECK - ORIF 10/12., Left foot pain Medications Medication SIG (Take, Route, Frequency, Duration) Notes Start Date End Date Status simvastatin 40 mg for 90 Days Active acyclovir 400 mg for 90 Days A ctive hydroCHLOROthiazide 12.5 mg TAKE 1 CAPSU LE DAILY for 90 Days Active Lyrica 75 mg 1 cap orally 2 times a day as needed for pain for 14 days 11/13/2024 Active gabapentin 100 mg 2 cap(s) orally twic e a day for 30 days 11/27/2024 Active ketorolac 10 mg 1 tab(s) orally 4 ti mes a day as needed for breakthrough pain for 5 days 10/10/2024 Active atorvastatin Active meloxicam Active Vital Signs Height 5FT 5 IN in 01/09/2025 Weight 142 lbs 01/09/2025 BMI 23.63 01/09/2025 Encounters Encounter Location Date Provider Diagnosis [facility] [address] [place] [address] 01/09/2025 Golden Watkins Closed disp trimalleolar fx of left lower leg with routine healing S82.852D Assessments Encounter Date Diagnosis (ICD Code) Assessment Notes Treatment Notes Treatment Clinical Notes Section Notes 01/09/2025 Closed disp trimalleolar fx of left lower leg with routine healing (ICD-10 - S82.852D) Left trimalleolar ankle fracture 01/09/2025 Other Patient is a pleasant 74-year-old female presents today for trimalleolar ankle fracture. Still having quite a bit of pain and struggling. I do recommend obtaining a CT of her ankle and foot just to make sure there is no evidence of hardware complication or missed injury. We recommend start weightbearing. I would like to see her back upon completion of imaging studies. Will refill her gabapentin as needed Left trimalleolar ankle fracture Plan Of Treatment Treatment Notes Assessment Notes Other Patient is a pleasan t 74-year-old female presents today for trimalleolar ankle fracture. Still having quite a bit of pain and struggling. I do recommend obtaining a CT of her ankle and foot just to make sure there is no evidence of hardware complication or missed injury. We recommend start weightbearing. I would like to see her back upon completion of imaging studies. Will refill her gabapentin as needed Pending Test Test Name Order Date CT ANKLE LEFT WO CONTRAST 01/09/2025 CT FOOT LEFT WO CONTRAST 01/09/2025 RSS: ANKLE 3V LEFT AP, MORTISE, [id number] 01/09/2025 Referrals Referral Date Details 01/09/2025 01/09/2025, APPROVED .......PLEASE PRECERT CT SCAN LEFT FOOT AND ANKLE AT Golden [facility]ILLIP, [place], [place] Next Appt Details Follow Up: AFTER CT, Reason: Provider Name:Golden sam, 01/16/2025 01:40:00 PM, [address] [place] [address], [place], [address], Progress Notes * DEBORA CUELLOB:[birth year] (74 yo F)Acc No.[id number]:01/09/2025 Progress Notes Patient: MEGHAN REYNA Provider: Isai Watkins DO :1950 A ge:74 Y S ex:Female Date:01/09/2025 Address:[address] [place] [address] [address] Pcp:WHITNEY HERNANDEZ Subjective: * Chief Complaints: * 1 . LEFT ANKLE RECHECK - ORIF 10/12.. 2. Left foot pain. * HPI: G eneral Follow Up Information: Meghan is a 74-year-old female presents today for follow-up for her left trimalleolar ankle fracture. She is 3 months postop today. Still having quite a bit of pain and struggling with CRPS. We have started her on gabapentin which has helped this. She has not been weightbearing. She has had no new falls or injuries. She is doing physical therapy. Her lab workup demonstrated no evidence of infection. * ROS: C onstitutional: Teodoroies C [place]. P M and R Intake: Denies F ever. N ose/ Throat: Denies I nfection. D enies fever, chills, feeling. * Medical History: * Medications: T aking ketorolac 10 mg tablet 1 tab(s) orally 4 times a day as needed for breakthrough pain , Taking atorvastatin , Taking meloxicam , Taking simvastatin 40 mg tablet , Taking acyclovir 400 mg tablet , Taking hydroCHLOROthiazide 12.5 mg capsule TAKE 1 CAPSULE DAILY , Taking Lyrica 75 mg capsule 1 cap orally 2 times a day as needed for pain , Taking gabapentin 100 mg capsule 2 cap(s) orally twice a day Objective: * Vitals: H t: 5FT 5 IN, Wt:142lbs, BMI:23.63. * Examination: G eneral examination: L eft lower extremity:Skin intact. There is diffuse swelling about the foot. Her sensory exam is improving and less tender to palpation from before. She is quite stiff and does not quite get neutral dorsiflexion. Her motor and sensory exam is intact but there is are 2+ DP pulse. 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 Hardware appears to be stable. No evidence of fracture nonunion. Assessment: * Assessment: 1. C losed disp trimalleolar fx of left lower leg with routine healing - S82.852D (Primary)? Left trimalleolar ankle frac ture. Plan: * Treatment: 2. O thers I maging: RSS: ANKLE 3V LEFT AP, MORTISE, [id number] Notes: Patient is a pleasant 74-year-old female presents today for trimalleolar ankle fracture. Still having quite a bit of pain and struggling. I do recommend obtaining a CT of her ankle and foot just to make sure there is no evidence of hardware complication or missed injury. We recommend start weightbearing. I would like to see her back upon completion of imaging studies. Will refill her gabapentin as needed * Procedure Codes: 7 3610 X-ray Ankle, 3 view * Follow Up: A FTER CT Forms: * Images: * Electronic signature of Víctor Watkins DO on 01/11/2025 at 10:15 AM EDT Sign off status: Pending * Provider: Isai Watkins DO Date: 0 01/09/2025 Generated for Susan escobar/Madhu/Lloyditting on: 0 01/11/2025 10:15 AM EDT History and Physical Notes * HPI (History of Present Illness) Category Sub-Category Detail Notes Category Not es General Follow Up Information Meghan is a 74-year- old female presents today for follow-up for her left trimalleolar ankle fracture. She is 3 months postop today. Still having quite a bit of pain and struggling with CRPS. We have started her on gabapentin which has helped this. She has not been weightbearing. She has had no new falls or injuries. She is doing physical therapy. Her lab workup demonstrated no evidence of infection. Examination Category Sub-Category Detail Notes Category Not es General examination Left low er extremity:Skin intact. There is diffuse swelling about the foot. Her sensory exam is improving and less tender to palpation from before. She is quite stiff and does not quite get neutral dorsiflexion. 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 Hardware appears to be stable. No evidence of fracture nonunion. Consultation Request Notes Referral Date Referring Provider Referred Provider Not es 01/09/2025 Golden Watkins Dylan APPROVED .. .....PLEASE PRECERT CT SCAN LEFT FOOT AND ANKLE AT [facility]
--- OUTSIDE RECORDS SUMMARY | 2025-01-11 10:15 | XMS_ITS | Clinical Summary ---
Author Organization [facility] Address [address] [facility] [place] [address] Care Team Providers Care Supervisor Finishing Room Name Role Phone Yasir Flanagan MD Primary Care Provider [phone] Allergies No known active allergies Medications tamsulosin (Flomax) 0.4 MG 24 hr capsule Take 0.4 mg by mouth at bedtime 2 Active Sodium Sulfate-Mag Sulfate-KCl (Sutab) 4805-231-452 MG tablet 3 Active meloxicam (Mobic) 15 MG tablet Take 15 mg by mouth in the morning. 3 Active HYDROcodone-acetam inophen (Powell) 5-325 MG tablet Take 1 tablet by mouth every 6 (six) hours if needed 3 Active cetirizine-pseudoe phedrine (ZyrTEC-D) 5-120 MG 12 hr tablet Take 1 tablet by mouth every 12 (twelve) hours if needed Active acyclovir (Zovirax) 400 MG tablet Take 400 mg by mouth as needed in the morning and 400 mg as needed in the evening. 3 Active Restasis 0.05 % ophthalmic emulsion Administer 1 drop into affected eye(s) 5 Active ibuprofen 800 MG tablet Take 800 mg by mouth 3 (three) times a day as needed 5 Active ketorolac (Toradol) 10 MG tablet Take 1 tablet by mouth 4 (four) times a day as needed 5 Active ondansetron ODT (Zofran-ODT) 4 MG disintegrating tablet DISSOLVE ONE TABLET BY MOUTH EVERY 6 TO 8 HOURS NEEDED FOR NAUSEA 5 Active oxyCODONE-acetamin ophen (Percocet) 5-325 MG tablet Take 1 tablet by mouth every 6 (six) hours if needed 5 Active Klor-Con/EF 25 MEQ effervescent tablet DISSOLVE & TAKE ONE TABLET BY MOUTH TWO TIMES A DAY Active hydroCHLOROthiazid e (Microzide) 12.5 MG capsule Take 12.5 mg by mouth Daily 5 Active simvastatin (Zocor) 40 MG tablet Take 40 mg by mouth at bedtime 5 Active Active Problems Problem Noted Date Diagnosed Date Arthritis of lumbar spine 12/03/2022 Weakness of left lower extremity 12/03/2022 Encounters Date Type Department Care Team Description 11/02/2024 11:30 AM EDT Office Visit [facility] [address] [place] [address] Pushpa Null MD Actinic keratosis (Primary Dx) 11/02/2024 Bamboo flowsheet [facility] [address] [place] [address] Pushpa Null MD 11/02/2024 Travel from Last 3 Months Family History Medical History Relation Name Comments Hypertension Father Stroke Father Melanoma Neg Hx Relation Name Status Comments Father Alive Mother Social History Tobacco Use Types Packs/Day Years Used Date Smoking Tobacco: Never Smokeless Tobacco: Never Tobacco Cessation:Counseling Given: Not Answered Alcohol Use Standard Drinks/Week Comments Never 0 (1 standard drink = 0.6 oz pur e alcohol) Caffeine: 1-2 cups/day Comments Unknown Sex and Gender Information Value Date Recorded Sex Assigned at Not on file Legal Sex Female 7:30 PM EDT Gender Identity Not on file Sexual Orientation Not on file Last Filed Vital Signs Vital Sign Reading Time Taken Comments Blood Pressure 150/80 11/24/2022 11:31 AM EDT Pulse - - Temperature - - Respiratory Rate - - Oxygen Saturation - - Inhaled Oxygen Concentration - - Weight 61.2 kg (135 lb) 01/18/2018 12:00 PM EDT Height 166.4 cm (5' 5.5 ) 02/16/2022 12:00 PM ED T Body Mass Index 22.12 01/18/2018 12:00 PM EDT Plan of Treatment Upcoming Encounters Date Type Department Care Team (Late st Contact Info) Description 10/02/2025 9:45 AM EDT Office Visit [facility] [address] [place] [address] Pushpa Null MD [address] [place] [address] Health Maintenance Due Date Last Done Comments CT Colonography 1950 Colonoscopy 1950 Colorectal Cancer Screening 1950 FIT-DNA 1950 FIT 1950 FOBT 1950 Sigmoidoscopy 1950 Pneumococcal Vaccine: 65+ Ye ars (1 of 1 - PCV) 2002 Influenza Vaccine (#1) 2025 Mammogram 08/10/2025 08/10/2024, 0311/2023, 07/27/2022, Additional history exists Insurance [employer] Care Teams Supervisor Finishing Room Relationship Specialty Start Date End Date Yasir Flanagan MD [address] [place] [address], [address] [place] [address] PCP - General 12/03/22
--- OUTSIDE RECORDS SUMMARY | 2025-01-11 10:16 | XMS_ITS | Encounter Summary ---
Author Organization [facility] Address [address] [facility] [place] [address] Care Team Providers Care Jigger Operator Name Role Phone Yasir Flanagan MD Primary Care Provider [phone] Encounter Details Date Type Department Care Team (Late st Contact Info) Description 10/09/2024 Orders Only [facility] [place] [facility] [address] [place] [address] Duyen Meade MD [address] [place] [address] [address] [place] [address] Social History Tobacco Use Types Packs/Day Years Used Date Smoking Tobacco: Never Smokeless Tobacco: Never Alcohol Use Standard Drinks/Week Comments Never 0 (1 standard drink = 0.6 oz pur e alcohol) Caffeine: 1-2 cups/day Comments Unknown Sex and Gender Information Value Date Recorded Sex Assigned at Not on file Legal Sex Female 7:30 PM EDT Gender Identity Not on file Sexual Orientation Not on file documented as of this encounter Plan of Treatment Upcoming Encounters Date Type Department Care Team (Late st Contact Info) Description 10/02/2025 9:45 AM EDT Office Visit [facility] [address] [place] [address] Pushpa Null MD [address] [place] [address] documented as of this encounter Procedures Procedure Name Priority Date/Time Associated Diagnosis Comments XR ANKLE 3+ VIEWS LEFT Routine 10/09/2024 2:01 PM EDT documented in this encounter Results * XR ankle 3+ views left (10/09/2024 2:01 PM EDT) Anatomical Region Laterality Modality Lower Extremities, Ankle Left Radiogr aphic Imaging us Duyen Meade MD IMG XR PROCEDURES Final Resu lt documented in this encounter Visit Diagnoses Not on filedocumented in this encounter Care Teams Jigger Operator Relationship Specialty Start Date End Date Yasir Flanagan MD [address] [place] [address], [address] [place], [place] [id number] PCP - General 12/03/22 documented as of this encounter
--- OUTSIDE RECORDS SUMMARY | 2025-01-11 10:16 | XMS_ITS | Clinical Summary ---
Author Organization [facility] Address [address] [place] [address] Care Team Providers Care Knitter Wire Mesh Name Role Phone Bisi Beltran [facility] Primary Care Provider [phone] Social History Tobacco Use Types Packs/Day Years [...] of 2) 2002 Bone Density Screening 2017 Advance Directive Discussion 05/31/2024 Influenza Vaccine (#1) 2025 RSV Vaccine (1 - 1-dose 75+ series) 2027 Insurance [employer] Care Teams Knitter Wire Mesh Relationship Specialty Start Date End Date Bisi Beltran, [employer] INSTRU[employer] [address], [place] [address] PCP - General Internal Medicine 10/09/24
--- OUTSIDE RECORDS SUMMARY | 2025-01-11 10:16 | XMS_ITS | Encounter Summary ---
Author Organization [employer] [facility] Address [id number] [address] [place] [address] Care Team Providers Care Homeopathic Doctor Name Role Phone Unavailable Primary Care Provider Unavailabl e Encounter Details Date Type Department Care Team (Late st Contact Info) Description 09/03/2022 Telephone [facility] - Family Medicine [address] [place] [address] Kaylynn Márquez CMA Social History Tobacco Use [...] Care Team (Late st Contact Info) Description 08/07/2025 10:20 AM EDT Office Visit [facility] [address] [place] [address] documented as of this encounter Visit Diagnoses Not on filedocumented in this encounter Additional Health Concerns Assessment Noted Time PHQ-9 Depression Total Score: 0 07/31/19 9:52 AM EST A Body Mass Index follow-up plan has been documented for the patient 07/30/2022 6:39 PM EST documented as of this encounter
--- OUTSIDE RECORDS SUMMARY | 2025-01-11 10:16 | XMS_ITS | Encounter Summary ---
Author Organization [facility] Address [id number] [address] [place] [address] Care Team Providers Care Rnp Name Role Phone Unavailable Primary Care Provider Unavailabl e Encounter Details Date Type Department Care Team (Late Contact Info) Description 01/19/2022 Orders Only [facility] [address] [facility] [place] [address] Ref Prov, [place] [address] Social History Tobacco Use Types Packs/Day Years [...] Department Care Team (Late Contact Info) Description 08/07/2025 10:20 AM EDT Office Visit [facility] [address] [place] [address] documented as of this encounter Procedures Procedure [...] Time PHQ-9 Depression Total Score: 0 07/30/19 8:55 AM EST A Body Mass Index follow-up plan has been documented for the patient 07/29/2021 12:45 PM EST documented as of this encounter
--- OUTSIDE RECORDS SUMMARY | 2025-01-11 10:16 | XMS_ITS | Encounter Summary ---
Author Organization [facility] [facility] tem Address [id number] [address] [place] [address] Care Team Providers Care Personal Lines Insurance Advisor Name Role Phone Unavailable Primary Care Provider Unavailabl e Encounter Details Date Type Department Care Team (Late Contact Info) Description 03/07/2021 Orders Only [facility] [address] [place] [address] [address] External, Scanning Provider Social History Tobacco Use [...] - Family Medicine [address] [place] [address] documented as of this encounter Procedures Procedure Name Priority Date/Time Associated Diagnosis Comments MULTIPLE LABS Routine 03/07/2021 documented in this encounter Results * Multiple labs (03/07/2021) us Scanning Provider External [facility] Final Result MANUALLY TRANSCRIBED RESULTS documented in this encounter Visit Diagnoses Not on filedocumented in this encounter Additional Health Concerns Assessment Noted Time PHQ-9 Depression Total Score: 0 08/01/19 21 1:00 PM EST A Body Mass Index follow-up plan has been documented for the patient 01/03/2020 9:55 AM EDT documented as of this encounter
--- OUTSIDE RECORDS SUMMARY | 2025-01-11 10:16 | XMS_ITS | Encounter Summary ---
Author Organization [facility] tem Address [id number] [address] [place] [address] Care Team Providers Care Concert Singer Name Role Phone Unavailable Primary Care Provider Unavailabl e Encounter Details Date Type Department Care Team (Late Contact Info) Description 08/31/2022 Orders Only [facility] - Family Medicine [address] [place] [address] External, Scanning Provider Social History Tobacco Use [...] Medicine - Family Medicine [address] [place] [address] documented as of this encounter Procedures Procedure [...]
--- OUTSIDE RECORDS SUMMARY | 2025-01-11 10:16 | XMS_ITS | Clinical Summary ---
Author Organization [employer] tem Address [facility] [place]-[id number] [address] [place] [address] Care Team Providers Care Machine Wiper Name Role Phone Unavailable Primary Care Provider Unavailabl e Allergies No known active allergies Medications hydroCHLOROthiazid e (HYDRODIURIL) 25 mg tablet 2 Active KLOR-CON/EF 25 mEq disintegrating tablet DISSOLVE & TAKE ONE TABLET BY MOUTH TWO TIMES A DAY 4 Active cetirizine-pseudoe phedrine (ZyrTEC-D) 5-120 mg per 12 hr tabletIndications: Congestion of paranasal sinus Take 1 tablet by mouth every 12 (twelve) hours as needed for rhinitis (congestion). 40 tablet 2 4 Active simvastatin (ZOCOR) 40 mg tabletIndications: Hypercholesterolem ia TAKE 1 TABLET NIGHTLY 90 tablet 3 5 Active acyclovir (ZOVIRAX) 400 mg tabletIndications: Recurrent cold sores Take 1 tablet (400 mg total) by mouth in the morning and 1 tablet (400 mg total) before bedtime. 180 tablet 3 5 Active RESTASIS 0.05 % ophthalmic emulsion Administer 1 drop to both eyes. 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 Menopausal state 08/18/2018 Annual physical exam 08/18/2018 Assessment & Plan (08/18/2018 11:07 AM EDT): DATE WHEN VACCINE ------- --FLU YRLY IN FALL Done 2017 --TETANUS Q 10 YRS 2008 --HSV ONCE AGE 60 needs --PREVNAR 13 ONCE AGE 65 2019 declined --PPSSV 23 ONCE AGE 68 2019 declined CA SCREENING ----- --COLONOSCOPY AGE 50 - 75 Done in 2012 --FIT AGE 50 - 75 needs --PSA AGE 50 - 70 na -EVA AGE 50 - 70 na --PAP AGE 21 - 65 S/p hyst --MAMMOGRAM AGE 45 TO 75 07/2018 done OSTEOPOROSIS ----- --DEXA MENOPAUSAL 07/2018 ordered OPTHO LEONCIORY utd DENTAL YEARLY utd MEDICARE WELLNESS YEARLY (67) Still working DM FOOT EXAM YEARLY na Hx of skin cancer, basal cell 05/31/2001 Overview (08/18/2018): RIGHT ARM AND CHEST Seasonal allergies Back pain Osteopenia Overview (08/31/2018): Daniel w Isai Encounters Date Type Department Care Team Description 12/29/2024 Travel 12/12/2024 Results Follow-Up [facility] [address] [place] [address] Heidi Rodriguez, FOREST EXAMINER-PARBOILER X-ray ankle left minimum 3 views 12/06/2024 Orders Only [facility] [address] [place] [address] External, Scanning Provider 11/29/2024 Travel 10/27/2024 Orders Only [facility] [address] [place] [address] Ref Prov, Not In System from Last 3 Months Immunizations Immunization Administration Dates Next Due COVID-19, mRNA, LNP-S, PF, 100mcg/0.5mL Dose 08/23/2020,07/26/2020 Pneumococcal Conjugate 08/18/2018(Deferred: Janet ent Refused) Pneumococcal Polysaccharide 08/18/2018(Deferred: Patient Refused) Tdap 05/31/2008 Zoster Live 08/18/2018(Deferred: Patient Ref used) Family History Medical History Relation Name Comments Diabetes type I Brother Hypertension Father Alzheimer's disease Mother Diabetes type I Sister Breast cancer Neg Hx Relation Name Status Comments Brother Father Mother Sister Social History Tobacco Use Types Packs/Day Years [...] file Not on file Not on file Last Filed Vital Signs Vital Sign Reading Time Taken Comments Blood Pressure 100/50 08/02/2024 9:53 AM EST Pulse 82 07/30/2022 9:57 AM EST Temperature 36.2 C (97.1 F) 08/02/2024 9:53 AM EST Respiratory Rate 18 08/02/2024 9:53 AM EST Oxygen Saturation 98% 08/02/2024 9:53 AM EST Inhaled Oxygen Concentration - - Weight 62.6 kg (138 lb) 08/02/2024 9:53 AM EST Height 165.1 cm (5' 5 ) 08/02/2024 9:53 AM EST Body Mass Index 22.96 08/02/2024 9:53 AM EST Plan of Treatment Upcoming Encounters Date Type Department Care Team (Late st Contact Info) Description 08/07/2025 10:20 AM EDT Office Visit [facility] [address] [place] [address] Health Maintenance Due Date Last Done Comments Colonoscopy 1997 COVID-19 Vaccine (2023-2 5 season) 2024 05/05/2021, 08/23/2020, 07/26/2020 Adult BMI Screening 08/02/2025 08/02/2024 Depression Screening 08/02/2025 08/02/2024 Fall Risk Screening 08/02/2025 08/02/2024 Medicare Annual Wellness Visit 08/02/2025 0 08/02/2024, 08/02/2023, 07/30/2022, Additional history exists Tobacco Screening 08/02/2025 08/02/2024 Mammogram 08/10/2025 08/10/2024, 03/0 11/2023, 07/27/2022, Additional history exists DTaP,Tdap and Td Vaccines Discontinued 05/31/2008 Influenza Vaccine Discontinued Zoster (Shingles) Vaccine Discontinued Medical Devices Not on file Procedures Procedure Name Priority Date/Time Associated Diagnosis Comments XR ANKLE LT MIN 3 VWS Routine 10/12/2024 11:[address] ANKLE LT WO CONT Routine 10/11/2024 9 :44 AM EDT MAMM SCREENING BILATERAL W CAD Routine 08/10/2024 2:15 PM EDT Encounter for screening mammogram for malignant neoplasm of breast from Last 3 Months or Most Recently Relevant to Health Maintenance Results * X-ray ankle left minimum 3 views (10/12/2024 11:11 AM EDT) Anatomical Region Laterality Modality Lower Extremities, MSK, Ankle Left Co mputed Radiography us Scanning Provider External IMG DIAGNOSTIC IMAGIN G ORDERABLES Final Result * CT ankle left without contrast (10/11/2024 9:44 AM EDT) Anatomical Region Laterality Modality MSK, Lower Extremities, Ankle, MSK Covera Left Computed Tomography us Not In System Ref Prov IMG CT ORDERABLES Final R esult * Mammography screening bilateral with CAD (08/10/2024 2:15 PM EDT) Anatomical Region Laterality Modality Breast Bilateral Mammography 08/11/2024 10:5 0 AM EDT Narrative 08/11/2024 10:51 AM EDT MEGHAN JOHNSTONYESENIA 1950 [id number] EXAM: MAMM SCREENING BILATERAL W CAD, 08/10/2024 2:05 PM CLINICAL INDICATIONS: Screening, Encounter for screening mammogram for malignant neoplasm of breast COMPARISON: Multiple prior mammograms were viewed for comparison dating back to 10/13/2017 TECHNIQUE: Bilateral digital tomosynthesis MLO and CC views of the breasts were obtained, with creation of synthetic 2D views. Computer aided detection was utilized. FINDINGS: There are scattered areas of fibroglandular density. There are no suspicious masses, calcifications, or areas of architectural distortion. IMPRESSION: No mammographic evidence of malignancy. BI-RADS: BI-RADS 1 - Negative RECOMMENDATION: Routine screening mammogram in 1 year. RISK ASSESSMENT: TC Lifetime risk: 2%. The patient's reported personal and family medical history was used calculate their Tyrer-Cuzick lifetime risk of malignancy. Scores less than 20% are not considered high risk per ACR guidelines and patient should continue with the above recommendation. Finalized by Peggy Damon MD on 08/11/2024 10:51 AM 1 b MAMM 1 YR FDA Accredited Performing Facility: [facility] - Mammography/DEXA Imaging [address] [id number] Procedure Note Peggy Damon MD - 08/11/2024 MEGHAN WERNER KHUSHBOO 1950 [id number] EXAM: MAMM SCREENING BILATERAL W CAD, 08/10/2024 2:05 PM CLINICAL INDICATIONS: Screening, Encounter for screening mammogram formalignant neoplasm of breast COMPARISON: Multiple prior mammograms were viewed for comparison datingback to 10/13/2017 TECHNIQUE: Bilateral digital tomosynthesis MLO and CC views of the breastswere obtained, with creation of synthetic 2D views. Computer aideddetection was utilized. FINDINGS: There are scattered areas of fibroglandular density. There are no suspicious masses, calcifications, or areas of architecturaldistortion. IMPRESSION: No mammographic evidence of malignancy. BI-RADS: BI-RADS 1 - Negative RECOMMENDATION: Routine screening mammogram in 1 year. RISK ASSESSMENT: TC Lifetime risk: 2%. The patient's reported personal and family medical history was usedcalculate their [facility] lifetime risk of malignancy. Scores less than20% are not considered high risk per ACR guidelines and patient shouldcontinue with the above recommendation. Finalized by Peggy Damon MD on 08/11/2024 10:51 AM 1 b MAMM 1 YR FDA Accredited Performing Facility: [facility] - Mammography/DEXA Imaging [address] [facility] [id number] us Bisi Beltran FOREST EXAMINER-PARBOILER IMG MAMMOGRAPHY ORDE DAWOOD Final Result from Last 3 Months or Most Recently Relevant to Health Maintenance Insurance [employer]
--- OUTSIDE RECORDS SUMMARY | 2025-01-11 10:16 | XMS_ITS | Encounter Summary ---
Author Organization [employer] tem Address [facility] [id number] [address] [place] [address] Care Team Providers Care Fried Cake Maker Name Role Phone Unavailable Primary Care Provider Unavailabl e Encounter Details Date Type Department Care Team (Late st Contact Info) Description 08/01/2024 Telephone [facility] Medicine [address] [place] [address] Norris George CMA Social History Tobacco Use [...] Medicine - Family Medicine [address] [place] [address] documented as of this encounter Visit Diagnoses Not on filedocumented in this encounter Additional Health Concerns Assessment Noted Time PHQ-9 Depression Total Score: 0 08/02/19 24 2:45 PM EST A Body Mass Index follow-up plan has been documented for the patient 08/02/2023 4:04 PM EST documented as of this encounter
--- OUTSIDE RECORDS SUMMARY | 2025-01-11 10:16 | XMS_ITS | Encounter Summary ---
Author Organization [employer] tem Address [id number] [address] [place] [address] Care Team Providers Care Clothes Presser Name Role Phone Unavailable Primary Care Provider Unavailabl e Encounter Details Date Type Department Care Team (Late st Contact Info) Description 06/03/2020 Telephone [facility] [address] [facility] [place] [place] [address] Janelle Salazar MA Social History Tobacco Use [...] Spoke to pt, she said with [employer]/ medicare they have to have wellness g [...] - Family Medicine [address] [place] [address] documented as of this encounter Visit Diagnoses Not on filedocumented in this encounter Additional Health Concerns Assessment Noted Time PHQ-9 Depression Total Score: 0 06/28/19 10:58 AM EST A Body Mass Index follow-up plan has been documented for the patient 01/03/2020 9:55 AM EDT documented as of this encounter
--- OUTSIDE RECORDS SUMMARY | 2025-01-11 10:16 | XMS_ITS | Encounter Summary ---
Author Organization [employer] [facility] tem Address [facility] [place]-[id number] [address] [place] [address] Care Team Providers Care Visual Merchandising Specialist Name Role Phone Unavailable Primary Care Provider Unavailabl e Encounter Details Date Type Department Care Team (Late Contact Info) Description 09/09/2022 Orders Only [facility] - [facility] Medicine [address] [place] [address] External, Scanning Provider Social History Tobacco Use [...] - Family Medicine [address] [place] [address] documented as of this encounter Procedures Procedure [...]
--- OUTSIDE RECORDS SUMMARY | 2025-01-11 10:16 | XMS_ITS | Encounter Summary ---
Author Organization [facility] Address [address] [facility] [place] [address] Care Team Providers Care Php Consultant Name Role Phone Yasir Flanagan MD Primary Care Provider [phone] Encounter Details Date Type Department Care Team (Latest Contact Info) Description 10/06/2024 Results Follow-Up [facility] [address] [facility] [address] [address] [facility] [address] [place] [address] Pushpa Null MD [address] [facility] [address] [place] [address] Dermatopathology exam Social History Tobacco Use Types Packs/Day Years [...] Office Visit [facility] [address] [facility] [address] [place] [address] Pushpa Null MD [address] [facility] [address] [facility] [address] [place] [address] documented as of this encounter Visit Diagnoses Not on filedocumented in this encounter Care Teams Php Consultant Relationship Specialty Start Date End Date Yasir Flanagan MD [address] [place] [address], [address] [place] [address] PCP - General 12/03/22 documented as of this encounter
--- OUTSIDE RECORDS SUMMARY | 2025-01-11 10:16 | XMS_ITS | Encounter Summary ---
Author Organization [employer] [facility] tem Address [facility] [place]-[id number] [address] [place] [address] Care Team Providers Care Health Promotion Manager Name Role Phone Unavailable Primary Care Provider Unavailabl e Encounter Details Date Type Department Care Team (Late Contact Info) Description 05/14/2022 Orders Only [facility] [address] [place] [address] External, Scanning Provider Social History Tobacco Use [...] Medicine - Family Medicine [address] [place] [address] documented as of this encounter Procedures Procedure [...]
--- OUTSIDE RECORDS SUMMARY | 2025-01-11 10:16 | XMS_ITS | Encounter Summary ---
Author Organization [facility] [employer] [facility] tem Address [facility] [place] [place]-[id number] [address] [place] [address] Care Team Providers Care Copra Sampler Name Role Phone Unavailable Primary Care Provider Unavailabl e Encounter Details Date Type Department Care Team (Late Contact Info) Description 10/27/2024 Orders Only [facility] Medicine [address] [place] [address] Ref Prov, [place] [address] Social History Tobacco Use Types Packs/Day Years [...] Internal Medicine - Family Medicine [address] [place] [address] documented as of this encounter [...]
--- OUTSIDE RECORDS SUMMARY | 2025-01-11 10:16 | XMS_ITS | Encounter Summary ---
Author Organization [employer] [address] [facility] tem Address [facility] [place][id number] [address] [place] [address] Care Team Providers Care Analytics Intern Name Role Phone Unavailable Primary Care Provider Unavailabl e Encounter Details Date Type Department Care Team (Late Contact Info) Description 10/24/2020 Orders Only [facility] [address] [place] [address] Ref Prov, [place] [address] Social History Tobacco Use Types Packs/Day Years [...] - Family Medicine [address] [place] [address] documented as of this encounter Procedures Procedure [...]
--- OUTSIDE RECORDS SUMMARY | 2025-01-11 10:16 | XMS_ITS | Encounter Summary ---
Author Organization [facility] tem Address [facility] [place]-[id number] [address] [place] [address] Care Team Providers Care Corporate Director Talent Assessment Name Role Phone Unavailable Primary Care Provider Unavailabl e Encounter Details Date Type Department Care Team (Latest Contact Info) Description 12/29/2024 Travel Social History Tobacco Use Types Packs/Day Years [...] Description 08/07/2025 10:20 AM EDT Office Visit [facility] - [facility] Medicine [address] [place] [address] documented as of this encounter Visit Diagnoses Not on filedocumented in this encounter Additional Health Concerns Assessment Noted Time PHQ-9 Depression Total Score: 0 08/03/19 25 9:00 AM EST A Body Mass Index follow-up plan has been documented for the patient 08/02/2024 10:38 AM EST documented as of this encounter
--- OUTSIDE RECORDS SUMMARY | 2025-01-11 10:16 | XMS_ITS | Encounter Summary ---
Author Organization [facility] [employer] tem Address [facility] [place]-[id number] [address] [place] [address] Care Team Providers Care Spray Booth Operator Name Role Phone Unavailable Primary Care Provider Unavailabl e Encounter Details Date Type Department Care Team (Late st Contact Info) Description 08/25/2022 Orders Only [facility] Medicine [address] [place] [address] External, Scanning Provider Social History Tobacco Use [...] - Family Medicine [address] [place] [address] documented as of this encounter Procedures Procedure Name Priority Date/Time Associated Diagnosis Comments MULTIPLE LABS Routine 08/25/2022 documented in this encounter Results * Multiple labs (08/25/2022) us Scanning Provider External [facility] IMAGING Final Result MANUALLY TRANSCRIBED RESULTS documented in this encounter Visit Diagnoses Not on filedocumented in this encounter Additional Health Concerns Assessment Noted Time PHQ-9 Depression Total Score: 0 07/31/19 9:52 AM EST A Body Mass Index follow-up plan has been documented for the patient 07/30/2022 6:39 PM EST documented as of this encounter
--- OUTSIDE RECORDS SUMMARY | 2025-01-11 10:16 | XMS_ITS | Encounter Summary ---
Author Organization [employer] [facility] tem Address [id number] [address] [place] [address] Care Team Providers Care Roofing Machine Tender Name Role Phone Unavailable Primary Care Provider Unavailabl e Encounter Details Date Type Department Care Team (Late Contact Info) Description 09/24/2021 Orders Only [facility] [address] [address] Kristin Aldridge CMA Special screening for malignant [...] Medicine - Family Medicine [address] [place] [address] documented as of this encounter Procedures Procedure Name Priority Date/Time Associated Diagnosis Comments AMB REFERRAL TO GASTROENTEROLOGY Routine 09/24/2021 3:12 PM EDT Special screening for malignant neoplasm of colon documented in this encounter Results * Ambulatory referral to Gastroenterology (09/24/2021 3:12 PM EDT) us Bisi Beltran BLUEPRINT READER-CCTV TECHNICIAN OUTPATIENT REFERRAL ORDERABLES Final Result MANUALLY TRANSCRIBED [...]
--- OUTSIDE RECORDS SUMMARY | 2025-01-11 10:16 | XMS_ITS | Encounter Summary ---
Author Organization [employer] tem Address [facility] [id number] [address] [place] [address] Care Team Providers Care Speech And Language Assistant Name Role Phone Unavailable Primary Care Provider Unavailabl e Encounter Details Date Type Department Care Team (Late st Contact Info) Description 07/30/2022 Telephone [facility] Medicine [address] [place] [address] Kaylynn Márquez CMA Social History Tobacco Use [...] before the [employer]? Please send it to [employer] documented in this encounter Plan of Treatment Upcoming Encounters Date Type Department Care Team (Late st Contact Info) Description 08/07/2025 10:20 AM EDT Office Visit [facility] [address] [place] [address] documented as of this encounter Visit Diagnoses Not on filedocumented in this encounter Additional Health Concerns Assessment Noted Time PHQ-9 Depression Total Score: 0 07/31/19 9:52 AM EST A Body Mass Index follow-up plan has been documented for the patient 07/30/2022 6:39 PM EST documented as of this encounter
--- OUTSIDE RECORDS SUMMARY | 2025-01-11 10:16 | XMS_ITS | Encounter Summary ---
Author Organization [employer] tem Address [facility][id number] [address] [place] [address] Care Team Providers Care Revolving Field Assembler Name Role Phone Unavailable Primary Care Provider Unavailabl e Encounter Details Date Type Department Care Team (Late st Contact Info) Description 05/18/2022 Telephone [facility] Medicine [address] [place] [address] Janelle Salazar MA Social History Tobacco Use [...] Internal Medicine - Family Medicine [address] [place] [address] documented as of this encounter Visit Diagnoses Not on filedocumented in this encounter Additional Health Concerns Assessment Noted Time PHQ-9 Depression Total Score: 0 03/16/20 10:43 AM EDT A Body Mass Index follow-up plan has been documented for the patient 01/21/2022 2:26 PM EDT documented as of this encounter
--- OUTSIDE RECORDS SUMMARY | 2025-01-11 10:16 | XMS_ITS | Patient Health Record ---
Author Organization [facility] Address [address] [place] [address] Care Team Providers Care Jumpbasting Machine Operator Name Role Phone WHINTEY HERNANDEZ Primary Care Provider Unavail able Golden Watkins Unavailable [phone] Ganga Garcia Unavailable [phone] Results Component Value Reference Range Notes XR Ankle 3 Views Left (Not y et reviewed by provider) Interpretation: Performing Lab: Notes/Report: Patient Name: Meghan Cuello EXAM: XR Ankle 3 Views Left C-Reactive Protein (Not yet reviewed by provider) Interpretation: Performing Lab: Notes/Report: [facility] Lab [address] [place] [address] Dental Professional: Ruddy Quinteros MD C-Reactive Protein <3.0 0.0-5.0 mg/L Performing Lab: see note [facility] Lab [address] [facility] [id number] XR ANKLE LEFT (MIN 3 VIEWS) (Not yet reviewed by provider) Interpretation: Performing Lab: Notes/Report: EXAM: XR FOOT RIGHT (MIN 3 VIEWS), XR ANKLE LEFT (MIN 3 VIEWS) Performed at: [address] [id number] XR FOOT RIGHT (MIN 3 VIEWS) (Not yet reviewed by provider) Interpretation: Performing Lab: Notes/Report: EXAM: XR FOOT RIGHT (MIN 3 VIEWS), XR ANKLE LEFT (MIN 3 VIEWS) Performed at: [address] [id number] XR ANKLE LEFT (2 VIEWS) (Not yet reviewed by provider) Interpretation: Performing Lab: Notes/Report: EXAM: XR ANKLE LEFT (2 VIEWS) Performed at: [address] [address] XR OR Ankle Left (Not yet re viewed by provider) Interpretation: Performing Lab: Notes/Report: Patient Name: Meghan Cuello This report was not created by a radiologist, physician, or advanced practice provider. Surgery Scheduling Reviewed date:10/26/2024 01:36:34 PM Interpretation: Performing Lab: Notes/Report: Primary Insurance Company: MEDICARE PARAMOUNT Surgeon/Assist: AUTUMN/LYUBOV ALLEN Surgery Location: [facility] Surgery Date & Time: 10/12/2024 @ 1:30 Hosp arrival time day of: 11:30 Surgery End Time: 3:00 Procedure: ORIF LEFT ANKLE Special Equipment: [employer] AND [employer] C-Arm: YES Diagnosis: CLOSED DISPLACED LEF T BIMALLEOLAR FRACTURE Admission Type: OP Anesthesia Type/CPNB: GENERAL Post-op Appointment Date: 10/30/24 @ 2:00 [place] [facility] Latex Allergy NO Lab Location: [facility] ON 10/11/24 Rand Maker: ZACKARY Ortega Physician: NONE NEEDED History & Physical Appointment Date/: 10/10/24 Pre-op labs/Chest Order: CBC,BMP,CXR,EKG Had or have MRSA/Direct contact w MRSA pt/HCW NO Had dental problems/Yes-no/type: NO Sedimentation Rate (Not yet reviewed by provider) Interpretation: Performing Lab: Notes/Report: [facility] Lab [address] [place] [address] Dental Professional: Ruddy Quinteros MD Sedimentation Rate 6 0-30 mm/Hr Performing Lab: see note [facility] Lab [address] [place] [id number] Reason For Referral Reason APPROVED PLEASE DC ECERT STAT CT SCAN OF LEFT ANKLE FOR SURGICAL PLANNING AT [facility] Diagnosis 1 Closed trimalleolar fracture of left ankle, initial encounter (E17.309W) Referral Organization [facility] Referring Provider First Name Golden Referring Provider Last Name Autumn Referring Provider Speciality Orthopedic Surgery Referred Organization [facility] Referred Provider Golden Watkins Referred Address [facility] Referred Provider Specialty Orthopedic S urgery Procedure 1 CT Lower Ext w/o Dye (26827) General Notes Zackary Griffin 2024 11:02:32 AM >, Sissy Lockwood 10/10/2024 11:53:20 AM > FORM AND CLINICAL FAXED TO Fabián STEVENS Amber 10/10/2024 01:57:16 PM > AUTH IS APPROVED PER [facility]. APPROVED DATES ARE FROM 10/10/2024-01/10/2025. AUTH # [id number]. AUTH IN CHART. FAXED TO [facility]Gaby Tricia 10/10/2024 02:20:44 PM > Referral Priority Stat Reason APPROVED .......PLEA PRECERT CT SCAN LEFT FOOT AND ANKLE AT [facility] Diagnosis 1 Closed disp trimalle olar fx of left lower leg with routine healing (S82.852D) Referral Organization [facility] Referring Provider First Name Golden Referring Provider Last Name Autumn Referring Provider Speciality [facility]opedic [facility] Golden Watkins Referred Address [facility] Referred Provider Specialty Orthopedic S urgery Procedure 1 CT Lower Ext w/o Dye (99305) General Notes Zackary Griffin 2024 01:01:49 PM >Zoraida Amy 01/09/2025 02:13:13 PM >FORM AND CLINICAL FAXED TO Zoraida STEVENS Amy 01/10/2025 08:35:58 AM >APPROVED PER [facility] AUTH #[id number] VALID 10/10/2024-03/30/2025 COPY IN CHART MA NOTIFIED REF FAXED TO Gaby PHILLIP Tricia 01/11/2025 08:53:40 AM > Referral Priority Routine Reason APPROVED PLEASE DC ECERT ORIF LEFT ANKLE AT [facility] ON 10/12 OP Joby Quintero 10/10/2024 11:55:19 >Cpt code 30278 Diagnosis 1 Closed trimalleolar fracture of left ankle, initial encounter (S82.852A) Referral Organization [facility] Referring Provider First Name Golden Referring Provider Last Name Autumn Referring Provider Speciality Orthopedic Surgery Referred Organization [facility] Referred Provider Golden Watkins Referred Address [address] [facility] [id number] Referred Provider Specialty Orthopedic S urgery Procedure 1 ORIF Trimalleolar Fx , Medial/Lateral Malleolus W/O Fixation of posterior Lip (93280) General Notes Zackary Griffin 2024 11:03:20 AM >, Sissy Lockwood 10/10/2024 11:44:23 AM > REQ CODE, Fabián Sissy 10/10/2024 12:00:24 PM > Joby Quintero 10/10/2024 11:55:19 >Cpt code 45526Fabián Amber 10/10/2024 12:02:59 PM > FORM AND CLINICALS FAXEDFabián Amber 10/10/2024 02:00:47 PM > AUTH IS APPROVED PER [facility]. APPROVED DATES ARE FROM 10/10/2024-04/12/2025. AUTH # [id number]. AUTH IN CHART. FAXED TO [facility]., Zackary Griffin 10/10/2024 02:20:23 PM >ORDER FAXED Referral Priority Stat Medications Medication SIG (Take, Route, Frequency, Duration) Notes Start Date End Date Status ketorolac 10 mg 1 tab(s) orally 4 [...] a day for 30 days 11/27/2024 Active Social History Tobacco Use: Social History Observation Description Date Details (start date - stop date) Never Smoker NA - NA AUDIT-C (Standard) Question Answer Notes Did you have a drink containing alcohol in the p ast year? No Points 0 Interpretation Negative Tobacco Control (Standard) Question Answer Notes Tobacco use: Nonsmoker Problems Problem Type SNOMED Code ICD Code Onset Dates Problem Status W/U Status Risk Notes Problem 210465220114657 Right foot pain (M79.671) Active confirmed Problem 8320652 Closed trimalleolar fracture of left ankle, initial encounter (S82.852A) Active confirmed Problem 46372784 Closed bimalleolar fracture of left ankle, initial encounter (S82.842A) Active confirmed Problem 4423761 Closed disp trimalleolar fx of left lower leg with routine healing (S82.852D) Active confirmed Vital Signs Height 5FT 5 IN in 01/09/2025 Weight 142 lbs 01/09/2025 BMI 23.63 01/09/2025 Procedures Procedure Date Ordered Date Performed Result Body Sit e EKG 10/10/2024 N/A Encounters Encounter Location Date Provider Diagnosis [facility] [address] [place] [address] 12/12/2024 Golden Watkins Closed disp trimalleolar fx of left lower leg with routine healing S82.852D [facility] [address] [place] [address] 01/09/2025 Golden Watkins Closed disp trimalleolar fx of left lower leg with routine healing S82.852D [facility] [address] [place] [address] 10/10/2024 Golden Watkins Closed trimalleolar fracture of left ankle, initial encounter S82.852A [facility] [address] [place], [place] [id number] 10/12/2024 Golden Watkins Closed trimalleolar fracture of left ankle, initial encounter S82.852A [facility] [address] [place] [address] 10/30/2024 Golden Watkins Closed disp trimalleolar fx of left lower leg with routine healing S82.852D [facility] [address] [place] [address] 11/13/2024 Ganga Garcia Closed disp trimalleolar fx of left lower leg with routine healing S82.852D [facility] [address] [place] [address] 11/27/2024 Golden Watkins Closed disp trimalleolar fx of left lower leg with routine healing S82.852D and Right foot pain M79.671 [facility] [place] [address] [place] [address] 10/12/2024 Golden Watkins Closed trimalleolar fracture of left ankle, initial encounter S82.852A [place] [address] [place] [address] 10/25/2024 Golden Watkins Closed trimalleolar fracture of left ankle, initial encounter S82.852A [place] [address] [place] [address] 11/13/2024 Golden Watkins [place] [address] [place] [address] 11/23/2024 Golden Watkins [facility] [address] [place] [address] 12/12/2024 Golden Watkins [place] [address] [place] [address] 12/26/2024 Golden Watkins Closed disp trimalleolar fx of [...] trimalleolar ankle fracture 10/12/2024 Left calf pain 11/27/2024 Right foot pain (ICD-10 - M79.671) Left trimalleolar ankle fracture 11/27/2024 Closed disp trimalleolar fx of left lower leg with routine healing (ICD-10 - S82.852D) Left trimalleolar ankle fracture 12/12/2024 Closed disp trimalleolar fx of left lower leg with routine healing (ICD-10 - S82.852D) Left trimalar ankle fracture 12/26/2024 Closed disp trimalleolar fx of left lower leg with routine healing (ICD-10 - S82.852D) 01/09/2025 Closed disp trimalleolar fx of left lower leg with routine healing (ICD-10 - S82.852D) Left trimalleolar ankle fracture 12/12/2024 Other Overall patient still progressing. Having issues with pain. Recommend continued gabapentin and physical therapy. She is going to be weightbearing as tolerated moving forward. Will see her back in 1 month with repeat x-rays. Left trimalar ankle fracture 01/09/2025 Other Patient is a [...] gabapentin as needed Left trimalleolar ankle fracture 10/10/2024 Other I had discussio n today [...] trimalleolar ankle fracture 10/12/2024 Left calf pain 11/27/2024 Other Patient is havi ng quite a bit of pain today. Overall x-rays appear to be stable. 6 weeks from injury today. Will start her in some physical therapy. Maintain nonweightbearing status. Will start on vitamin C for potential CRPS, a prescription for gabapentin and Shields also provided. See her back in 1 month. Left trimalleolar ankle fracture Plan Of Treatment Pending Test Test Name Order Date Chest 2 views - 07094 10/10/2024 Foot, left 3v - 78095 11/13/2024 BMP 10/10/2024 EKG 10/10/2024 CT ANKLE LEFT WO CONTRAST 10/10/2024 CT ANKLE LEFT WO CONTRAST 01/09/2025 CBC WITH DIFFERENTIAL 10/10/2024 CT FOOT LEFT WO CONTRAST 01/09/2025 XR Ankle 3 Views Left 10/12/2024 XR ANKLE LEFT (2 VIEWS) 10/30/2024 C-Reactive Protein 12/15/2024 Sedimentation Rate 12/15/2024 XR FOOT RIGHT (MIN 3 VIEWS) 11/27/2024 XR ANKLE LEFT (MIN 3 VIEWS) 11/27/2024 [facility]- ANKLE 3 VIEW LEFT 61337 10/10/2024 SCC- ANKLE 3 VIEW LEFT 79918 11/27/2024 SCC- FOOT 3 VIEW RIGHT 72507 11/27/2024 RSS: ANKLE 3V LEFT AP, MORTISE, LAT-7361 0 01/09/2025 RSS: ANKLE 3V LEFT AP, MORTISE, LAT-7361 0 11/13/2024 RSS: ANKLE 3V LEFT AP, MORTISE, LAT-7361 0 12/12/2024 ESR, CRP 12/12/2024 RSS- Venous doppler LEFT low er extremity : Dx: M79.662 left leg pain ; Hold and call if positive only 11/13/2024 SCC- ANKLE 2 VIEW LEFT 11870 10/30/2024 SCC- PT/OT EVAL AND TREAT 3X/WEEK FOR 6 WEEKS 11/27/2024 XR OR Ankle Left 10/12/2024 Next Appt Details Provider Name:Golden sam, 01/16/2025 01:40:00 PM, [address] [place] [address], [phone], Insurance Providers Payer Name Payer Address Payer Phone Subscriber Number Group Number Insured Name Patient Relationship to Insured Coverage Start Date Coverage End Date Medicare [place] [address] [place] [address] [id number] MEGHAN CUELLO Self - patient is the insured Medical (General) History Medical History History ICD Code Problems with Anesthesia Surgical History Surgery Date(Month/Year) ORIF of a left trimalleolar ankle fractu re 10/12/2024
--- OUTSIDE RECORDS SUMMARY | 2025-01-11 10:16 | XMS_ITS | Encounter Summary ---
Author Organization [facility] [employer] [facility] tem Address [id number] [address] [place] [address] Care Team Providers Care Oncology Technician Name Role Phone Unavailable Primary Care Provider Unavailabl e Reason for Visit * Reason Onset Date Comments medication update 05/26/2022 Encounter Details Date Type Department Care Team (Late st Contact Info) Description 05/26/2022 Telephone [facility] Internal Medicine - Family Medicine [address] [place] [phone] Bisi Beltran, DISABILITY SERVICES COORDINATOR-SPRING LAYER [address] LEFT PM 11/27/24 [place] [phone] medication update Social History Tobacco Use Types [...] Internal Medicine - Family Medicine [address] [place] [address] documented as of this encounter Visit Diagnoses Not on filedocumented in this encounter Additional Health Concerns Assessment Noted Time PHQ-9 Depression Total Score: 0 03/16/20 10:43 AM EDT A Body Mass Index follow-up plan has been documented for the patient 01/21/2022 2:26 PM EDT documented as of this encounter
--- OUTSIDE RECORDS SUMMARY | 2025-01-11 10:16 | XMS_ITS | Encounter Summary ---
Author Organization [id number] tem Address [id number] [address] [place] [address] Care Team Providers Care Laborer Brooder Farm Name Role Phone Unavailable Primary Care Provider Unavailabl e Encounter Details Date Type Department Care Team (Late Contact Info) Description 01/21/2022 Orders Only [facility] Family Medicine [address] [place] [address] [place] [address] External, Scanning Provider Social History Tobacco Use [...] - Family Medicine [address] [place] [address] documented as of this encounter Procedures Procedure Name Priority Date/Time Associated Diagnosis Comments MULTIPLE LABS Routine 01/21/2022 documented in this encounter Results * Multiple labs (01/21/2022) us Scanning Provider External [place] IMAGING Final Result MANUALLY TRANSCRIBED RESULTS documented in this encounter Visit Diagnoses Not on filedocumented in this encounter Additional Health Concerns Assessment Noted Time PHQ-9 Depression Total Score: 0 01/22/20 22 1:28 PM EDT A Body Mass Index follow-up plan has been documented for the patient 01/21/2022 2:26 PM EDT documented as of this encounter
--- OUTSIDE RECORDS SUMMARY | 2025-01-11 10:16 | XMS_ITS | Encounter Summary ---
Author Organization [facility] [facility] tem Address [facility]-[id number] [address] [place] [address] Care Team Providers Care Tafe Registrar Name Role Phone Unavailable Primary Care Provider Unavailabl e Encounter Details Date Type Department Care Team (Late Contact Info) Description 12/06/2024 Orders Only [facility] Internal Medicine - Family Medicine [address] [place] [address] External, Scanning Provider Social History Tobacco Use [...] - Family Medicine [address] [place] [place] [address] documented as of this encounter Procedures Procedure Name Priority Date/Time Associated Diagnosis Comments XR ANKLE LT MIN 3 VWS Routine 10/12/2024 11:11 AM EDT documented in this encounter Results * X-ray ankle left minimum 3 [...]
--- OUTSIDE RECORDS SUMMARY | 2025-01-11 10:16 | XMS_ITS | Encounter Summary ---
Author Organization [facility] tem Address [facility]-[id number] [address] [place] [address] Care Team Providers Care Food Photographer Name Role Phone Unavailable Primary Care Provider Unavailabl e Encounter Details Date Type Department Care Team (Late Contact Info) Description 01/15/2022 Orders Only [facility] Family Medicine [address] [place] [address] External, Scanning Provider Social History [...] - Family Medicine [address] [place] [place] [address] documented as of this encounter Procedures Procedure Name Priority Date/Time Associated Diagnosis Comments MULTIPLE LABS Routine 01/15/2022 documented in this encounter Results * Multiple labs (01/15/2022) us Scanning Provider External [place] IMAGING Final Result MANUALLY TRANSCRIBED RESULTS documented in this encounter Visit Diagnoses Not on filedocumented in this encounter Additional Health Concerns Assessment Noted Time PHQ-9 Depression Total Score: 0 07/30/19 22 8:55 AM EST A Body Mass Index follow-up plan has been documented for the patient 07/29/2021 12:45 PM EST documented as of this encounter
--- OUTSIDE RECORDS SUMMARY | 2025-01-11 10:16 | XMS_ITS | Encounter Summary ---
Author Organization [facility] tem Address [facility]-[id number] [address] [place] [address] Care Team Providers Care Psychological Stress Evaluator Name Role Phone Unavailable Primary Care Provider Unavailabl e Encounter Details Date Type Department Care Team (Late st Contact Info) Description 07/31/2022 Orders Only [facility] Internal Medicine - Family Medicine [address] [place] [address] Kana Ozuna, [address] [place] [address] Colon cancer screening (Primary Dx) Social History [...] Medicine - Family Medicine [address] [place] [address] documented as of this encounter Visit Diagnoses [...]
--- OUTSIDE RECORDS SUMMARY | 2025-01-11 10:16 | XMS_ITS | Encounter Summary ---
Author Organization [facility] tem Address [facility]-[id number] [address] [place] [address] Care Team Providers Care Juvenile Correctional Officer Name Role Phone Unavailable Primary Care Provider Unavailabl e Encounter Details Date Type Department Care Team (Late st Contact Info) Description 12/12/2024 Results Follow-Up [facility] Internal Medicine - Family Medicine [address] [place] [address] Heidi Rodriguez, DESIGNATED BROKER-DIETIST [address] [place] [address] X-ray ankle left minimum 3 views Social History Tobacco Use Types Packs/Day Years [...] - Family Medicine [address] [place] [address] documented as of this encounter Visit Diagnoses Not on filedocumented in this encounter Additional Health Concerns Assessment Noted Time PHQ-9 Depression Total Score: 0 08/03/19 25 9:00 AM EST A Body Mass Index follow-up plan has been documented for the patient 08/02/2024 10:38 AM EST documented as of this encounter
--- OUTSIDE RECORDS SUMMARY | 2025-01-11 10:16 | XMS_ITS | Encounter Summary ---
Author Organization [facility] tem Address [facility]-[id number] [address] [place] [address] Care Team Providers Care Plasterer Rough Name Role Phone Unavailable Primary Care Provider Unavailabl e Encounter Details Date Type Department Care Team (Late Contact Info) Description 10/23/2020 Orders Only [facility] [address] [place] [address] External, Scanning Provider Social History Tobacco Use [...] - Family Medicine [address] [place] [address] documented as of this encounter Procedures Procedure [...]
--- OUTSIDE RECORDS SUMMARY | 2025-01-11 10:16 | XMS_ITS | Encounter Summary ---
Author Organization [facility] [employer] [facility] tem Address [facility]-[id number] [address] [place] [address] Care Team Providers Care Manufacturing Inspector Name Role Phone Unavailable Primary Care Provider Unavailabl e Encounter Details Date Type Department Care Team (Late Contact Info) Description 08/18/2024 Orders Only [facility] Internal Medicine - Family Medicine [address] [place] [address] Ref Prov, [place] [address] Social History Tobacco Use Types Packs/Day Years [...] Internal Medicine - Family Medicine [address] [place] [address] documented as of this encounter [...]
--- OUTSIDE RECORDS SUMMARY | 2025-01-11 10:16 | XMS_ITS | Clinical Summary ---
Author Organization [facility] Address [address], [address] [place] [address] Care Team Providers Care Automobile Body Customizer Name Role Phone Bisi Beltran APRN - DITCHER Primary Care Prov ider Encounters Date Type Department Care Team Description 12/15/2024 1:36 PM EDT - 12/15/2024 11:59 PM EDT Hospital Encounter [facility] [address] [place] [address] Discharge Disposition: Home or Self Care 11/27/2024 1:25 PM EDT - 11/29/2024 11:59 PM EDT Hospital Encounter [facility] [address] [place] [address] Closed disp trimalleolar fx of left lower leg with routine healing; Right foot pain Discharge Disposition: Home or Self Care 11/27/2024 Transcribe Orders [facility] Admitting [address] [place] [address] Golden Watkins, Closed disp trimalleolar fx of left lower leg with routine healing (Primary Dx) 10/30/2024 2:15 PM EDT - 11/01/2024 11:59 PM EDT Hospital Encounter [facility] [address] [place] [address] Closed trimalleolar fracture of left ankle, initial encounter Discharge Disposition: Home or Self Care 10/30/2024 2:05 PM EDT - 11/01/2024 11:59 PM EDT Hospital Encounter [facility] [address] [place] [address] Discharge Disposition: Home or Self Care from Last 3 Months Social History Tobacco Use Types Packs/Day Years Used Date Smoking Tobacco: Never Assessed Comments Unknown Sex and Gender Information Value Date Recorded Sex Assigned at Not on file Legal Sex Female 1:58 PM EDT Gender Identity Not on file Sexual Orientation Not on file Plan of Treatment Health Maintenance Due Date Last Done Comments Depression Screen 1964 Hepatitis C screen 1970 Lipids 1992 Colonoscopy 1997 Colorectal Cancer Screen 1997 FIT/FOBT: Average risk 1997 Fecal-DNA (Cologuard): Average risk 1997 Sigmoidoscopy/CT colonography 1997 Pneumococcal 50+ years Vaccine (1 of 1 - PCV) 2002 Shingles vaccine (1 of 2) 2002 DTaP/Tdap/Td vaccine (2 - Td or Tdap) 05/31/2018 05/31/2008 COVID-19 Vaccine ( season) 2024 05/05/2021, 08/23/2020, 07/26/2020 Annual Wellness Visit (Medicare Advantage) 05/31/2024 Flu vaccine (#1) 12/29/2024 Breast cancer screen 08/10/2026 08/10/2024, 08/05/2023, 07/27/2022, Additional history exists Respiratory Syncytial Virus (RSV) or age 60 yrs+ (1 - 1-dose 75+ series) 2027 DEXA (modify frequency per FRAX score) Completed 08/05/2023, 08/23/2020, 08/19/2018 Hepatitis A vaccine Aged Out No longe r eligible based on patient's age to complete this topic Hepatitis B vaccine Aged Out No longe r eligible based on patient's age to complete this topic Hib vaccine Aged Out No longer eligi ble based on patient's age to complete this topic Meningococcal (ACWY) vaccine Aged Out No longer eligible based on patient's age to complete this topic Meningococcal B vaccine Aged Out No l onger eligible based on patient's age to complete this topic Polio vaccine Aged Out No longer elig ible based on patient's age to complete this topic Procedures Procedure Name Priority Date/Time Associated Diagnosis Comments SEDIMENTATION RATE Routine 12/15/2024 1: 38 PM EDT C-REACTIVE PROTEIN Routine 12/15/2024 1: 38 PM EDT XR FOOT RIGHT (MIN 3 VIEWS) Routine 11/27/2024 2:03 PM EDT Right foot pain XR ANKLE LEFT (MIN 3 VIEWS) Routine 11/27/2024 2:03 PM EDT Closed disp trimalleolar fx of left lower leg with routine healing XR ANKLE LEFT (2 VIEWS) Routine 10/30/2024 2:40 PM EDT Closed trimalleolar fracture of left ankle, initial encounter from Last 3 Months Results * Sedimentation Rate (12/15/2024 1:38 PM EDT) Sed Rate, Automated 6 0 - 30 mm/Hr 12/15/2024 1:38 PM EDT [facility] 12/15/2024 1:38 PM EDT 12/15/2024 1:39 PM EDT us Golden Watkins DO HEMATOLOGY ORDERABLES Final R esult Performing Organization Address [facility] [address]/ZIP Co de Phone Number [facility] [address] [place] [address], [facility] [phone] * C-Reactive Protein (12/15/2024 1:38 PM EDT) CRP <3.0 0.0 - 5.0 mg/L 12/15/2024 1:38 PM EDT [facility] 12/15/2024 1:38 PM EDT 12/15/2024 1:39 PM EDT us Golden Watkins DO CHEMISTRY ORDERABLES Final Re sult Performing Organization Address City/[facility] [address]/ZIP Co de Phone Number [facility] [address] [place] [id number] [phone] * XR FOOT RIGHT (MIN 3 VIEWS) (11/27/2024 2:03 PM EDT) Anatomical Region Laterality Modality Foot, Ankle Computed Radiogr aphy 11/27/2024 2:03 PM EDT Impressions 11/27/2024 4:32 PM EDT FINDINGS/IMPRESSION: 1. Moderate degenerative change first MTP joint. Remainder normal for age. 2. Left ankle shows mild diffuse soft tissue swelling remains. 3. Plate and screw fixation tibia and fibula remain in anatomic alignment. 4. Disuse osteopenia. Narrative 11/27/2024 4:32 PM EDT EXAM: XR FOOT RIGHT (MIN 3 VIEWS), XR ANKLE LEFT (MIN 3 VIEWS) HISTORY: Right foot pain COMPARISON: Prior studies left ankle most recently 10/30/2024. Procedure Note Misael Flores Jr., MD - 11/27/2024 EXAM: XR FOOT RIGHT (MIN 3 VIEWS), XR ANKLE LEFT (MIN 3 VIEWS) HISTORY: Right foot pain COMPARISON: Prior studies left ankle most recently 10/30/2024. IMPRESSION: FINDINGS/IMPRESSION: 1. Moderate degenerative change first MTP joint. Remainder normal forage. 2. Left ankle shows mild diffuse soft tissue swelling remains. 3. Plate and screw fixation tibia and fibula remain in anatomicalignment. 4. Disuse osteopenia. Golden Watkins DO IMG DIAGNOSTIC IMAGING ORDERA BLES Final Result * XR ANKLE LEFT (MIN 3 VIEWS) (11/27/2024 2:03 PM EDT) Anatomical Region Laterality Modality Leg, Ankle, Foot Computed Radiog sánchez 11/27/2024 2:03 PM EDT Impressions 11/27/2024 4:32 PM EDT FINDINGS/IMPRESSION: 1. Moderate degenerative change first MTP joint. Remainder normal for age. 2. Left ankle shows mild diffuse soft tissue swelling remains. 3. Plate and screw fixation tibia and fibula remain in anatomic alignment. 4. Disuse osteopenia. Narrative 11/27/2024 4:32 PM EDT EXAM: XR FOOT RIGHT (MIN 3 VIEWS), XR ANKLE LEFT (MIN 3 VIEWS) HISTORY: Right foot pain COMPARISON: Prior studies left ankle most recently 10/30/2024. Procedure Note Misael Flores Jr., MD - 11/27/2024 EXAM: XR FOOT RIGHT (MIN 3 VIEWS), XR ANKLE LEFT (MIN 3 VIEWS) HISTORY: Right foot pain COMPARISON: Prior studies left ankle most recently 10/30/2024. IMPRESSION: FINDINGS/IMPRESSION: 1. Moderate degenerative change first MTP joint. Remainder normal forage. 2. Left ankle shows mild diffuse soft tissue swelling remains. 3. Plate and screw fixation tibia and fibula remain in anatomicalignment. 4. Disuse osteopenia. Golden Watkins DO [facility] DIAGNOSTIC IMAGING ORDERA BLES Final Result * XR ANKLE LEFT (2 VIEWS) (10/30/2024 2:40 PM EDT) Anatomical Region Laterality Modality Leg, Ankle, Foot Computed Radiog sánchez 10/30/2024 2:40 PM EDT Impressions 10/30/2024 4:39 PM EDT FINDINGS/IMPRESSION: 1. Tibial and fibular plate and screw fixation is intact. 2. Ankle mortise normally aligned. 3. Anatomic alignment without separately identifiable fracture lines at this time. Narrative 10/30/2024 4:39 PM EDT EXAM: XR ANKLE LEFT (2 VIEWS) HISTORY: Closed trimalleolar fracture of left ankle, initial encounter COMPARISON: Left ankle 10/12/2024. Procedure Note Misael Flores Jr., MD - 10/30/2024 EXAM: XR ANKLE LEFT (2 VIEWS) HISTORY: Closed trimalleolar fracture of left ankle, initial encounter COMPARISON: Left ankle 10/12/2024. IMPRESSION: FINDINGS/IMPRESSION: 1. Tibial and fibular plate and screw fixation is intact. 2. Ankle mortise normally aligned. 3. Anatomic alignment without separately identifiable fracture lines atthis time. Golden Watkins DO IM DIAGNOSTIC IMAGING ORDERA BLES Final Result from Last 3 Months Insurance [employer] Care Teams Automobile Body Customizer Relationship Specialty Start Date End Date Bisi Beltran, POLY OPERATOR - DITCHER [address], [place] [address] PCP - General Certified Nurse Practitioner 10/30/24
--- NOTE | 2025-01-11 10:18 | CT_ITS ---
The [address] [address] Patient Name: OKSANA CUELLO MRN: [id number] date: 1950 Sex: F Assigned Patient Location: CT Current Patient Location: Accession/Order Number: [id number] Exam Date: 01/11/2025 10:56 Report Date: 01/11/2025 11:00 At the request of: ANALI LEYVA MD Procedure: CT ankle LT wo con CT left ankle WITHOUT CONTRAST WITH 3D RECONSTRUCTIONS: CLINICAL HISTORY: Closed Displaced Trimalleolar Fracture COMPARISON: Left ankle CT 10/11/2024 TECHNIQUE: Spiral axial unenhanced images were obtained through the left ankle. Sagittal, coronal and 3D volume-rendered reconstructions were also reviewed. This CT exam was performed using one or more following dose reduction techniques: Automated exposure control, adjustment of the mA and/or kV according to patient size, or use of iterative reconstruction technique. FINDINGS: Hardware is seen involving the tibia and fibula without definitive hardware complication. There appears to be partial nonunion of the fibular component of the patient's fracture. Remote posttraumatic changes are seen in the region of the medial malleolus. Ankle mortise appears intact. No acute fracture line is seen. Bones are grossly demineralized presumed from disuse osteopenia. Mild soft tissue swelling. No fluid collection to suggest abscess. CT/CT ankle LT wo con IMPRESSION: NO HARDWARE COMPLICATION IS SEEN. THERE APPEARS TO BE INCOMPLETE HEALING OF THE PATIENT'S DISTAL FIBULAR FRACTURE. NO ACUTE FRACTURE IS SEEN. Impression dictated by: Nick Diggs Jr., D.O. 01/11/2025 11:00 AM Dictation Location: [facility] Electronically authenticated by: [id number] Y Date: 01/11/2025 11:00
== END 2025-01-11 10:12 | disposition home or self-care (01) ==
LOC: CT 10:11
PROVIDERS: PCP Nurse Practitioner; Visit Provider Student in an Organized Health Care Education/Training Program
DX: S82.852G Displaced trimalleolar fracture of left lower leg, subsequent encounter for closed fracture with delayed healing (principal)
CPT/HCPCS: 73700

== ENCOUNTER 2025-01-24 10:06 | Outpatient (OUT) | payer MEDICARE, SELFPAY ==
--- NOTE | 2025-01-24 10:32 | CT_ITS ---
The [address] [address] Patient Name: OKSANA CUELLO MRN: [id number] date: 1950 Sex: F Assigned Patient Location: CT Current Patient Location: CT Accession/Order Number: [id number] Exam Date: 01/24/2025 10:36 Report Date: 01/24/2025 11:16 At the request of: ANALI LEYVA MD Procedure: CT foot LT wo con CT LEFT FOOT WITHOUT CONTRAST WITH RECONSTRUCTIONS: CLINICAL DATA: Follow-up triphasic malleolar fracture findings surgery. Complex nerve pain syndrome. COMPARISON: Left ankle 01/11/2025 Spiral axial unenhanced images were obtained through the foot. Sagittal and coronal reconstructions were reviewed. This CT exam was performed using one or more following dose reduction techniques: Automated exposure control, adjustment of the mA and/or kV according to patient size, or use of iterative reconstruction technique. The bony structures are osteopenic. There are plates and multiple screws along the posterior fibula as well as the posterior tibia. These were also present on the prior and there is no obvious interval change. Mild associated streak artifact is noted. The underlying fractures show no significant change in appearance or alignment. Similar bony ossicles are seen adjacent to the tip of the medial malleolus and anterior to the distal fibula. There are no new fractures or dislocation at the imaged ankle. The talar dome is intact. The imaged bones of the foot also show no acute findings. There is mild subcutaneous edema, greatest at the dorsum of the foot. No abnormal fluid collections are noted. CT/CT foot LT wo con IMPRESSION: OSTEOPENIA. SIMILAR POSTTRAUMATIC AND POSTOPERATIVE CHANGES INVOLVING THE ANKLE. NO NEW BONY ABNORMALITIES. Impression dictated by: Lashawn Akers M.D. 01/24/2025 11:16 AM Dictation Location: [place] [address] Electronically authenticated by: [id number] Y Date: 01/24/2025 11:16
== END 2025-01-24 10:07 | disposition home or self-care (01) ==
LOC: CT 10:06
PROVIDERS: PCP Nurse Practitioner; Visit Provider Student in an Organized Health Care Education/Training Program
DX: S82.852D Displaced trimalleolar fracture of left lower leg, subsequent encounter for closed fracture with routine healing (principal)
CPT/HCPCS: 73700

== ENCOUNTER 2025-05-02 10:01 | Outpatient (OUT) | payer MEDICARE, SELFPAY ==
--- OUTSIDE RECORDS SUMMARY | 2025-05-02 10:04 | XMS_ITS | Clinical Summary ---
Author Organization [employer] Address [id number] [address] [place] [address] Care Team Providers Care Independent Trader Name Role Phone Pankaj GriffinRaj MOORE-BUDGET MANAGER Primary Care Provider + Allergies No known active allergies Medications MedicationSigDispense QuantityRefillsLast FilledStart DateEnd DateStatus hydroCHLOROthiazide (HYDRODIURIL) 25 mg tablet 12/21/2021ctive KLOR-CON/EF 25 mEq disintegrating tablet DISSOLVE & TAKE ONE TABLET BY MOUTH TWO TIMES A DAY4Active cetirizine-pseudoephedrine (ZyrTEC-D) 5-120 mg per 12 hr tablet Indications:Congestion of paranasal sinusTake 1 tablet by mouth every 12 (twelve) hours as needed for rhinitis (congestion). 40 tablet 4Active simvastatin (ZOCOR) 40 mg tablet Indications:HypercholesterolemiaTAKE 1 TABLET NIGHTLY 90 tablet 5Active acyclovir (ZOVIRAX) 400 mg tablet Indications:Recurrent cold soresTake 1 tablet (400 mg total) by mouth in the morning and 1 tablet (400 mg total) before bedtime. 180 tablet 5Active RESTASIS 0.05 % ophthalmic emulsion Administer 1 drop to both eyes.5Active meloxicam (MOBIC) 15 mg tablet Indications:Back pain, lumbosacralTAKE 1 TABLET EVERY MORNING 90 tablet 5Active Active Problems ProblemNoted DateDiagnosed DateColon cancer ytsffafik16/03/2023rthritis 03/16/20227406Weoktlwmehewipsqnauu30/17/2022alculus of ohzwwy28/08/2021Leukocytes in urine01/03/2020Recurrent cold sores06/28/2019Menopausal state08/18/2018Annual physical exam08/18/2018 Assessment & Plan (08/18/2018 11:07 AM EDT): [...] OSTEOPOROSIS ----- --DEXA MENOPAUSAL 07/2018 ordered OPTHO YEALRY utd DENTAL YEARLY utd MEDICARE WELLNESS YEARLY (67) Still working DM FOOT EXAM YEARLY na Hx of skin cancer, basal cell05/31/2001 Overview (08/18/2018): RIGHT ARM AND CHEST Seasonal allergiesBack painOsteopenia Overview (08/31/2018): Daniel w D Encounters DateTypeDepartmentCare RiynJswdcqxkccw28/01/4744Gebpou80/03/0144Vtgylv02/01/2025 Vjoiam4502/07/2025Orders Only [facility] [address] [place] [address] External, Scanning Provider from Last 3 Months Immunizations ImmunizationAdministration DatesNext DueCOVID-19, mRNA, LNP-S, PF, 100mcg/0.5mL Dose08/23/2020,1Pneumococcal Unbdfdsyi76/21/2019(Deferred: Patient Refused)Pneumococcal Ajelubboukktmo66/21/2019(Deferred: Patient Refused)Tdap 05/31/2008Zoster Live08/18/2018(Deferred: Patient Refused) Family History Medical HistoryRelationNameCommentsDiabetes type IBrotherHypertensionFather Alzheimer's diseaseMotherDiabetes type ISisterBreast cancerNeg HxRelationName StatusCommentsBrotherFatherMotherDeceasedSister Social History Tobacco UseTypesPacks/DayYears UsedDateSmoking Tobacco: NeverSmokeless Tobacco: NeverAlcohol UseStandard Drinks/WeekCommentsNo0 (1 standard drink = 0.6 oz pure alcohol)PHQ-2AnswerDate RecordedTotal Gkste6685ChildcareAnswerDate TabwyjzqGomlvwjvyQkgcvsu46/12/2019EmploymentAnswerDate RecordedEmploymentUnknown 11/09/2018Hunger ScreeningAnswerDate RecordedWithin the past 12 months we worried whether our food would run out before we got money to buy more.Never True08/02/2024Within the past 12 months the food we bought just didn't last and we didn't have money to get more.Never True08/02/2024Purpose - LifeAnswerDate RecordedPurpose and direction in ssodQtccqen74/08/2021CommentsNoSex and Gender InformationValueDate RecordedSex Assigned at BirthNot on fileLegal Sex Wuvrdz8601/03/2015 11:48 AM EDTGender IdentityNot on fileSexual OrientationNot on fileOccupationIndustryJob Start DateJob End DateTURNPIKE ADMINISTRATIONNot on fileNot on fileNot on file Last Filed Vital Signs Vital SignReadingTime TakenCommentsBlood Govnvdwb561/50008/02/2024 9:53 AM EST Desyy342407/30/2022 9:57 AM GLEDkiuzpxvjfx89.2 ??C (97.1 ??F)08/02/2024 9:53 AM ESTRespiratory Sozk094608/02/2024 9:53 AM ESTOxygen Rxqkorlqjw80%08/02/2024 9:53 AM ESTInhaled Oxygen Concentration--Kpmkiz29.6 kg (138 lb)08/02/2024 9:53 AM EST Hrxwzi902.1 cm (5' 5 )08/02/2024 9:53 AM ESTBody Mass Index22.9608/02/2024 9:53 AM EST Plan of Treatment DateTypeDepartmentCare Team (Latest Contact Info)Wzlkdawfcew03/09/2026 8:45 AM EDTOffice Visit [facility] [address] [place] [phone] Juan Miguel Griffin, TOW TRUCK DISPATCHER-BUDGET MANAGER [address] [place] [address] Health MaintenanceDue DateLast NpyrMcqyfcdhQlitaumiuro43/02/1998COVID-19 Vaccine ( season), 08/23/2020, 07/26/2020dult BMI Oqcyeirmb12Depression Hmrojwwlb39Fall Risk Csbcvffhv11Medicare Annual Wellness Visit, 08/02/2023, 07/30/2022, Additional history existsTobacco Kkmlmvref37/05/2026 08/02/20243625Hjcagmhcz62, 08/05/2023, 07/27/2022, Additional history existsRSV ( or age 60+ yrs) (1 - 1-dose 75+ series)2027 DTaP,Tdap and Td JuoponomTnvhszhqxtqn42/01/2009Influenza VaccineDiscontinued Zoster (Shingles) VaccineDiscontinued Medical Devices Not on file Procedures Procedure NamePriorityDate/TimeAssociated DiagnosisCommentsMAMM SCREENING BILATERAL W WVFGjjxlgp62/13/2025 2:15 PM EDT Encounter for screening mammogram for malignant neoplasm of breast from Last 3 Months or Most Recently Relevant to Health Maintenance Results * Mammography screening bilateral with CAD (08/10/2024 2:15 PM EDT)Anatomical RegionLateralityModalityBreastBilateralMammographySpecimen (Source)Anatomical Location / LateralityCollection Method / VolumeCollection TimeReceived Time 08/11/2024 10:50 AM EDT Narrative 08/11/2024 10:51 AM EDT MEGHAN JOHNSTONYESENIA 1950 [id number] EXAM: MAMM SCREENING BILATERAL W CAD, 08/10/2024 [...] malignancy. BI-RADS: BI-RADS 1 - Negative RECOMMENDATION: ??Routine screening mammogram in 1 year. RISK ASSESSMENT: [...] MAMM 1 YR FDA Accredited Performing Facility: [facility] [address] [facility] [address] Procedure Note Peggy Damon MD - 08/11/2024 MEGHAN WERNER KHUSHBOO 1950 [id number] EXAM: MAMM SCREENING BILATERAL W CAD, 08/10/2024 [...] and family medical history was usedcalculate their Tyrer-Noellezick lifetime risk of malignancy. Scores less than20% are not considered high risk per ACR guidelines and patient shouldcontinue with the above recommendation. Finalized by Peggy Damon MD on 08/11/2024 10:51 AM 1 b MAMM 1 YR FDA Accredited Performing Facility: [facility] [address] [facility] [address] Authorizing ProviderResult TypeResult StatusValerieyad Beltran TOW TRUCK DISPATCHER-CNPIMG MAMMOGRAPHY ORDERABLESFinal Result from Last 3 Months or Most Recently Relevant to Health Maintenance Insurance Care Teams Team MemberRelationshipSpecialtyStart DateEnd Date Juan Miguel Griffin, TOW TRUCK DISPATCHER-BUDGET MANAGER [address] [place] [address] PCP - GeneralInternal Jbwcidtk84/7/25
--- OUTSIDE RECORDS SUMMARY | 2025-05-02 10:04 | XMS_ITS | Clinical Summary ---
Author Organization [facility] Address [address] [place] [address] Care Team Providers Care General Cleaner Name Role Phone Yasir Flanagan MD Primary Care Provider [phone] Allergies No known active allergies Medications MedicationSigDispense QuantityRefillsLast FilledStart DateEnd DateStatus tamsulosin (Flomax) 0.4 MG 24 hr capsule Take 0.4 mg by mouth at mwjpwdg6101/21/2022ctive Sodium Sulfate-Mag Sulfate-KCl (Sutab) 6371-723-683 MG tablet 07/31/2022ctive meloxicam (Mobic) 15 MG tablet Take 15 mg by mouth in the morning.07/30/2022ctive HYDROcodone-acetaminophen ([place]) 5-325 MG tablet Take 1 tablet by mouth every 6 (six) hours if hkpnra7608/26/2022ctive cetirizine-pseudoephedrine (ZyrTEC-D) 5-120 MG 12 hr tablet Take 1 tablet by mouth every 12 (twelve) hours if neededActive acyclovir (Zovirax) 400 MG tablet Take 400 mg by mouth as needed in the morning and 400 mg as needed in the evening.07/30/2022ctive Restasis 0.05 % ophthalmic emulsion Administer 1 drop into affected eye(s)5Active ibuprofen 800 MG tablet Take 800 mg by mouth 3 (three) times a day as ozbrzq3310/07/2024tive ketorolac (Toradol) 10 MG tablet Take 1 tablet by mouth 4 (four) times a day as sjbqzc575Active ondansetron ODT (Zofran-ODT) 4 MG disintegrating tablet DISSOLVE ONE TABLET BY MOUTH EVERY 6 TO 8 HOURS NEEDED FOR AJXRTA6710/07/2024 Active oxyCODONE-acetaminophen (Percocet) 5-325 MG tablet Take 1 tablet by mouth every 6 (six) hours if mqfjhg675Active Klor-Con/EF 25 MEQ effervescent tablet DISSOLVE & TAKE ONE TABLET BY MOUTH TWO TIMES A DAYActive hydroCHLOROthiazide (Microzide) 12.5 MG capsule Take 12.5 mg by mouth Daily5Active simvastatin (Zocor) 40 MG tablet Take 40 mg by mouth at nylowaz66/29/2025Active Active Problems ProblemNoted DateDiagnosed DateArthritis of lumbar spine12/03/2022Weakness of left lower xmuhjwkfh67/06/2023 Encounters DateTypeDepartmentCare YwwlNlnxtfghrmg55/07/2025Telephone [facility] [address] [place] [address] Bela Btaista, [place] Untreated referral mailed 03/06/25from Last 3 Months Family History Medical HistoryRelationNameCommentsHypertensionFatherStrokeFatherMelanomaNeg Hx RelationNameStatusCommentsFatherAliveMotherDeceased Social History Tobacco UseTypesPacks/DayYears UsedDateSmoking Tobacco: NeverSmokeless Tobacco: Never Tobacco Cessation:Counseling Given: Not Answered Alcohol UseStandard Drinks/WeekCommentsNever0 (1 standard drink = 0.6 oz pure alcohol)Caffeine: 1-2 cups/dayCommentsUnknownSex and Gender Information ValueDate RecordedSex Assigned at BirthNot on fileLegal FfbXlrxcc77/15/2023 7:30 PM EDTGender IdentityNot on fileSexual OrientationNot on file Last Filed Vital Signs Vital SignReadingTime TakenCommentsBlood Nxdcebme496/8006 11:31 AM EDT Pulse--Temperature--Respiratory Rate--Oxygen Saturation--Inhaled Oxygen Concentration--Cavbyc40.2 kg (135 lb)01/18/2018 12:00 PM RJMHxhkob944.4 cm (5' 5.5 )02/16/2022 12:00 PM EDTBody Mass Index22.1208 12:00 PM EDT Plan of Treatment DateTypeDepartmentCare Team (Latest Contact Info)Ijyvswjbifz56/09/2025 9:45 AM EDTOffice Visit [facility] [address] [place] [address] Pushpa Null MD [address] [place] [address] Insurance Care Teams Team MemberRelationshipSpecialtyStart DateEnd Yasir Flanagan MD [address] [place] [address], [address] [place] [address] PCP - General12/03/22
--- OUTSIDE RECORDS SUMMARY | 2025-05-02 10:04 | XMS_ITS | Encounter Summary ---
Author Organization [employer] [facility] tem Address [id number] [address] [place] [address] Care Team Providers Care Supervisor Of Guidance And Testing Name Role Phone Juan Miguel Griffin TERESA-RESTAURANT SERVICE MANAGER Primary Care Provider + Encounter Details DateTypeDepartmentCare Team (Latest Contact Info)Jwzhgpggpnv49/01/2025Travel Social History Tobacco UseTypesPacks/DayYears UsedDateSmoking Tobacco: NeverSmokeless Tobacco: NeverAlcohol UseStandard Drinks/WeekCommentsNo0 (1 standard drink = 0.6 oz pure alcohol)PHQ-2AnswerDate RecordedTotal [id number] CxuxjjnjVipzhnzsvVtiurkw97/12/2019EmploymentAnswerDate RecordedEmploymentUnknown 11/09/2018Hunger ScreeningAnswerDate RecordedWithin the past 12 months we worried whether our food would run out before we got money to buy more.Never True08/02/2024Within the past 12 months the food we bought just didn't last and we didn't have money to get more.Never True08/02/2024Purpose - LifeAnswerDate RecordedPurpose and direction in pabsGfpugnp73/08/2021CommentsNoSex and Gender InformationValueDate RecordedSex Assigned at BirthNot on fileLegal Sex Hprwjs5701/03/2015 11:48 AM EDTGender IdentityNot on fileSexual OrientationNot on fileOccupationIndustryJob Start DateJob End DateTURNPIKE ADMINISTRATIONNot on fileNot on fileNot on filedocumented as of this encounter Plan of Treatment DateTypeDepartmentCare Team (Latest Contact Info)Xssutxasxso07/09/2026 8:45 AM EDTOffice Visit [facility] [address] [place] [address] Juan Miguel Griffin, HEAD OF ENGLISH-RESTAURANT SERVICE MANAGER [address], [facility] [address] [place] [address] documented as of this encounter Visit Diagnoses Not on filedocumented in this encounter Additional Health Concerns AssessmentNoted TimePHQ-9 Depression Total Score: 9:00 AM ESTA Body Mass Index follow-up plan has been documented for the swptznq4608/02/2024 10:38 AM ESTdocumented as of this encounter Care Teams Team MemberRelationshipSpecialtyStart DateEnd Date Juan Miguel Griffin, HEAD OF ENGLISH-RESTAURANT SERVICE MANAGER [address] [place] [address] PCP - GeneralInternal Zebuyrlf42/7/25documented as of this encounter
--- NOTE | 2025-05-02 10:09 | CT_ITS ---
The [address] [address] Patient Name: OKSANA CUELLO MRN: [id number] date: 1950 Sex: F Assigned Patient Location: CT Current Patient Location: CT Accession/Order Number: [id number] Exam Date: 05/02/2025 10:15 Report Date: 05/02/2025 14:53 At the request of: ANALI LEYVA MD Procedure: CT ankle LT wo con CT ankle LT wo con 05/02/2025 10:19 AM SIGNS AND SYMPTOMS: Closed Trimalleolar Fractur Of Left Lower Leg, continued pain laterally with limited mobility TECHNIQUE: Multidetector CT axial slices of the left ankle without IV contrast. Multiplanar and 3D reformats were performed and viewed on a separate workstation and reviewed to further define anatomy and possible pathology. CT was performed with one or more of the following dose reduction techniques: Automated exposure control, adjustment of the mA and/or kV according to patient size, or use of iterative reconstruction technique. COMPARISON: 01/11/2025. FINDINGS: There is plate and screw fixation of the lateral malleolus and posterior aspect of the distal tibia. No hardware complication. The distal fibular fracture appears incompletely healed. There is near complete healing of the dorsal distal tibial fracture. There is a well corticated bone fragment separate from the distal fibula similar to the prior exam. There are minimally displaced avulsed fragments separate from the medial malleolus. These are unchanged. Secondary post-traumatic changes are noted in the tibiotalar joint. There is disuse osteopenia. CT/CT ankle LT wo con IMPRESSION: There is plate and screw fixation of the lateral malleolus and posterior aspect of the distal tibia. No hardware complication. The distal fibular fracture appears incompletely healed. There is near complete healing of the dorsal distal tibial fracture. There is disuse osteopenia. Secondary post-traumatic changes are noted in the tibiotalar joint. Impression dictated by: Carroll Meade M.D. 05/02/2025 2:53 PM Dictation Location: [place] [address] Electronically authenticated by: [id number] Y Date: 05/02/2025 14:53
== END 2025-05-02 10:02 | disposition home or self-care (01) ==
LOC: CT 10:01
PROVIDERS: PCP Nurse Practitioner; Visit Provider Student in an Organized Health Care Education/Training Program
DX: S82.852D Displaced trimalleolar fracture of left lower leg, subsequent encounter for closed fracture with routine healing (principal); M85.88 Other specified disorders of bone density and structure, other site
CPT/HCPCS: 73700; 76376